=== PATIENT | male | born 1950 | race African-American/Black ===

== ENCOUNTER 2018-05-12 13:55 | Inpatient (IN) | payer MEDICARE ==
[2018-05-12] MEDS ORDERED: Dextrose 50% Abboject 50 ML SYRINGE ONE (14:04)
[2018-05-12 14:36] LABS: Hemoglobin 7.6 g/dL (14.0-18.0); Mean Corpuscular Hemoglobin 34.4 pg (27.0-31.0); Mean Platelet Volume 13.2 fL (7.4-10.4); Platelet Count 12 thou/uL (130-400); RBC Distribution Width 16.9 % (11.5-14.5); Red Blood Cell (RBC) Count 2.22 mill/uL (4.70-6.10)
[2018-05-12 14:48] LABS: ALT (SGPT) 8 U/L (8-55); AST (SGOT) 19 U/L (5-34); Albumin 3.6 g/dL (3.4-4.8); Alkaline Phosphatase 101 U/L (40-150); Anion Gap 17 mmol/L (10-20); BUN (Urea Nitrogen) 39 mg/dL (8.4-25.7); Bilirubin, Total 0.5 mg/dL (0.2-1.2); Calc. Creatinine Clearance 0 mL/min (70-130); Calcium 8.7 mg/dL (7.8-10.44); Carbon Dioxide 20 mmol/L (23-31); Chloride 108 mmol/L (98-107); Estimated GFR-MDRD 33; Globulin 3.3 g/dL (2.4-3.5); Potassium 4.4 mmol/L (3.5-5.1); Protein, Total 6.9 g/dL (5.8-8.1); Sodium 141 mmol/L (136-145)
[2018-05-12 14:49] LABS: #Basophils 0.1 thou/uL (0.0-0.2); #Eosinphils 0.4 thou/uL (0.0-0.7); #Lymphocytes 0.9 thou/uL (1.20-3.40); #Monocytes 0.4 thou/uL (0.11-0.59); #Neutrophils 4.3 thou/uL (1.40-6.50); %Eosinophils 6.8 % (0.0-10.0); %Lymphocytes 14.8 % (21.0-51.0); %Monocytes 6.6 % (0.0-10.0); %Neutrophils 70.8 % (42.0-75.0); MDiff Complete? YES
[2018-05-12 14:50] LABS: Anisocytosis SLIGHT = 6-15 cells (100X) (0-5/hpf); Platelet Morphology Comment Appears Decreased
[2018-05-12 14:52] LABS: Glucose 58 mg/dL (80-115)
[2018-05-12 15:32] LABS: Bilirubin Small (Negative); Blood, Urine Trace (Negative); Clarity CLOUDY (Clear); Glucose, Urine (Dipstick) Negative (Negative); Leukocyte Negative (Negative); Nitrite Negative (Negative); Protein, Urine (Dipstick) 100 mg/dL (Neg-Trace); Specific Gravity, Urine 1.012 (1.002-1.036); Urobilinogen 0.2 mg/dL (0.2-1.0)
[2018-05-12 15:34] LABS: Bacteria/HPF None Seen HPF (None Seen); Pathc Cast-AUWi Flag 2.03 (0-2.49); RBC/HPF 0-3 HPF (0-3); Squamous Epithelial 0-3 HPF (0-3); WBC/HPF 0-3 HPF (0-3)
[2018-05-12 15:35] LABS: Yeast-AUWi Flag 58.2 (0-25.0)
[2018-05-12 15:45] LABS: Hyaline Casts/LPF 7-10 HYALINE CAST LPF (0-3 Hyaline)
[2018-05-12 15:46] LABS: Renal Epithelial 0-3 HPF (0-3); Transitional Epithelial 0-3 HPF (0-3); Yeast-All Forms None Seen HPF (None Seen)
[2018-05-12 15:54] LABS: CKMB 10.1 ng/mL (0-6.6)
--- NOTE | 2018-05-12 16:56 | HP ---
PRIMARY CARE PROVIDER: Dr. Marco Antonio Garcia. CHIEF COMPLAINT: Hypoglycemia. HISTORY OF PRESENT ILLNESS: Mr. Alfaro is a pleasant 68-year-old gentleman who was seen at [facility] on May 12, 2018. The patient himself is unable to provide any significant history. He reports that he is on so many medications that he does not remember their names. He reports that he was able to ambulate with a walker until a few weeks ago. He is currently confined to the bed. He reports that he had swelling of both lower extremities. He reports that he was on Lasix, but is no longer on Lasix. EMS was called today because the patient was unable to move. They found that his blood sugars were 37. He was brought to the emergency room for that reason. He denies any chest pain or shortness of breath. He denies any nausea, vomiting , diarrhea or abdominal pain. He denies having any history of liver disease or kidney disease. REVIEW OF SYSTEMS: All other systems reviewed and found to be negative. PAST MEDICAL HISTORY: Diabetes mellitus type 2, dyslipidemia, and hypertension. PAST SURGICAL HISTORY: Appendectomy and left knee surgery. SOCIAL HISTORY: The patient smokes half a pack of cigarettes a day. He denies any alcohol use or recreational drug use. FAMILY HISTORY: No family history of premature coronary artery disease. ALLERGIES: NO KNOWN DRUG ALLERGIES. CURRENT MEDICATIONS: This needs to be clarified. The patient does not recall the names of his medications. CODE STATUS: I discussed his code status. He is full code. His daughter, who lives in [place], is his surrogate decision maker. PHYSICAL EXAMINATION: GENERAL: On examination, Mr. Alfaro is awake and alert, not in acute distress. VITAL SIGNS: Blood pressure is 137/67, pulse 80, respiratory rate 13, and oxygen saturation 98% on room air. EYES: No scleral icterus, no conjunctival pallor. ENT: Moist mucosal membranes. No oropharyngeal erythema or exudates. NECK: Supple, nontender, trachea is midline. Large right-sided neck mass. RESPIRATORY: Accessory muscles of breathing are not active. Chest wall movements are symmetric bilaterally. LUNGS: Clear to auscultation without wheeze, rhonchi, or crepitations. CARDIOVASCULAR: S1 and S2 are heard, regular. Peripheral pulses palpable. No carotid bruit, no pericardial rub. ABDOMEN: Soft, nontender, bowel sounds are heard, no hepatomegaly, no splenomegaly. He has scratch olivares over the abdomen. NEUROLOGIC: He has a pronounced right upper extremity tremor. Cranial nerves 2 through 12 intact, deep tendon reflexes 2+. SKIN: Scratch olivares over the abdomen. He has bilateral lower extremity edema. LYMPHATIC: Cervical lymphadenopathy present. PSYCHIATRIC: Normal mood, normal affect, the patient is oriented to person and place, not to time. LABORATORY DATA: Mr. Alfaro's labs and investigations were reviewed. A 12- lead electrocardiogram shows normal sinus rhythm and right bundle-branch block. Normal white count, macrocytic anemia with hemoglobin 7.6, thrombocytopenia with platelet count of 12,000. Normal sodium, normal potassium, elevated blood urea nitrogen of 39, elevated creatinine of 2.38, unremarkable liver profile, elevated CK of 479 and indeterminate troponin I of 0.040. BNP is mildly elevated at 149.4. Urinalysis is negative for nitrite and leukocyte esterase. ASSESSMENT AND PLAN: Mr. Alfaro is a pleasant 68-year-old gentleman who was seen at [facility] on May 12, 2018. His problem list includes: 1. Acute kidney injury: Mr. Alfaro is presenting with acute kidney injury. Etiology unclear, could be related to rhabdomyolysis. Could also be prerenal from dehydration. He will be admitted to the hospital for further management. We will provide intravenous fluids and recheck creatinine. If creatinine is not improving, the patient may need further investigations. 2. Thrombocytopenia: We will check platelet count again to ensure this value is real. We will avoid pharmaco-prophylaxis for deep venous thrombosis. Further outcomes depending on how his platelets trend over the next day or two. 3. Hypoglycemia: The patient was hypoglycemic at home. It is unclear what medications he is taking. He denies taking insulin. Once his medications are clarified, we will hold the once likely to be affected by acute renal failure. 4. Macrocytic anemia: We will recheck the hemoglobin level. We will check vitamin B12 and folic acid level. 5. Indeterminate troponin I: The patient denies having any chest pain. Troponin I elevation, most likely secondary to acute renal failure. We will trend troponins. 6. Dyslipidemia: We will resume the patient's home medications once clarified. 7. Hypertension: We will resume the patient's home medications once clarified, we will monitor vital signs and titrate antihypertensives as needed. Many thanks for allowing me to participate in your patient's care. Please feel free to contact me with any questions or concerns. 8. Neck mass: concerning for malignancy. Will check CT neck/chest/abdo/ pelvis. LEVEL OF RISK: Moderate. LEVEL OF COMPLEXITY: Moderate. Job ID: [id number] MTDD
[2018-05-12 17:07] VITALS: BMI 24.4
[2018-05-12] MEDS: Sodium Chloride 0.9% 1,000 ML IV SCH (17:51)
[2018-05-12] MEDS: Nicotine 14 MG PATCH TD SCH (17:51)
[2018-05-12 20:41] LABS: Troponin I 0.041 ng/mL (< 0.028)
[2018-05-13] MEDS: Sodium Chloride 0.9% 1,000 ML IV SCH ×2 (04:05→12:22)
[2018-05-13 06:04] LABS: #Eosinphils 0.3 thou/uL (0.0-0.7); #Monocytes 0.6 thou/uL (0.11-0.59); #Neutrophils 2.2 thou/uL (1.40-6.50); %Basophils 1.1 % (0.0-1.0); %Eosinophils 6.2 % (0.0-10.0); %Lymphocytes 24.6 % (21.0-51.0); %Monocytes 14.1 % (0.0-10.0); Hemoglobin 6.1 g/dL (14.0-18.0); Mean Corpuscular HGB CONC 34.1 g/dL (32.0-36.0); Mean Corpuscular Hemoglobin 35.3 pg (27.0-31.0); Mean Platelet Volume 13.3 fL (7.4-10.4); Platelet Count 6 thou/uL (130-400); RBC Distribution Width 16.6 % (11.5-14.5); Red Blood Cell (RBC) Count 1.74 mill/uL (4.70-6.10); White Blood Cell (WBC) Count 4.1 thou/uL (4.8-10.8)
[2018-05-13 06:14] LABS: Anion Gap 10 mmol/L (10-20); BUN (Urea Nitrogen) 41 mg/dL (8.4-25.7); CK (CPK) 344 U/L (30-200); Calc. Creatinine Clearance 36 mL/min (70-130); Calcium 8.1 mg/dL (7.8-10.44); Carbon Dioxide 24 mmol/L (23-31); Chloride 110 mmol/L (98-107); Estimated GFR-MDRD 38; Glucose 132 mg/dL (80-115); Potassium 4.1 mmol/L (3.5-5.1); Sodium 140 mmol/L (136-145)
[2018-05-13 09:24] LABS: Reticulocyte Count 3.1 % (0.5-1.5)
[2018-05-13 10:14] LABS: Folate (Folic Acid) 4.5 ng/mL (7.0-31.4)
[2018-05-13] MEDS ORDERED: ISOVUE-370 76%-LOCM 1 ML ONE (12:33)
[2018-05-13] MEDS ORDERED: Cyanocobalamin 1000 MCG/ML VIAL IM SCH (14:00)
--- NOTE | 2018-05-13 15:16 | CT ---
CT CHEST WITH IV CONTRAST CT ABDOMEN AND PELVIS WITH IV AND ORAL CONTRAST: HISTORY: Chest and neck pain and swelling. Possible metastatic disease. FINDINGS: Minimal bilateral pleural fluid. Mild bibasilar lung atelectasis. The superior most images show mar ked enlargement of the thyroid gland involving each lobe, right greater than left, with extension to the right upper mediastinum at the level of the manubrium. A well-circumscribed homogeneous fat dens ity mass involving the right infraspinatus muscle measures up to 9.9 x 5.0 cm greatest diameters on t he axial images and is consistent with a muscular lipoma. No aggressive characteristics. Prominent calcification throughout the arterial structures, including at each hilum, where arterial s ource is suspected. No evidence of bowel obstruction. Urinary bladder is unremarkable. Fecal distention of the rectum up to 7.9 cm with relative thickening of the wall of the rectum. No e vidence of perforation. Prominent degenerative changes lumbar spine. An oval subtle ill-defined kathrine ency at the posterior aspect of the left iliac bone measures up to 1.6 cm. An additional, similar-ap pearing lucency immediately anterior to this within the left iliac bone is 1.0 cm greatest diameter. Postoperative changes at the left groin with appearance of bypass procedure. IMPRESSION: 1. Enlarged heterogeneous thyroid gland. Appearance is most suggestive of a multinodular goiter bas ed on this exam. Please consider ENT evaluation. 2. Lucencies within the left iliac bone could represent an aggressive process such as blastic neopla sm. Since these are lytic, a bone scan is not appropriate for evaluation. Please correlate with hem atologic evaluation. 3. Prominent atherosclerosis. 4. Circumferential wall thickening of the rectum with moderate distention. Clinical correlation reg arding other signs and symptoms of stercoral proctitis is required. POS: [place]
[2018-05-13] MEDS: Acetaminophen 325 MG TAB PO PRN (16:15)
[2018-05-13] MEDS: Nicotine 14 MG PATCH TD SCH (16:16)
--- NOTE | 2018-05-13 16:23 | CT ---
CT NECK WITH CONTRAST: 05/13/18 HISTORY: Right sided neck mass. COMPARISON: No prior neck CTs. FINDINGS: The thyroid gland is severely enlarged. The right lobe measures approximately 10.5 x 7 x 5 cm. The le ft lobe measures approximately 9.5 x 3.5 x 3.5 cm. The isthmus is also enlarged. There are numerous h eterogeneous, mixed density nodular structures throughout the enlarged thyroid gland. The larger righ t lobe mildly displaces the trachea to the left. The bilateral carotid arteries and internal jugular veins are displaced posterolaterally by the thyroid enlargement. No high grade stenosis of the trache a. The enlarged right lobe of the thyroid gland reaches the level of the right submandibular gland. O therwise, no major pathology is identified involving the submandibular, parotid, parapharyngeal, post erior cervical, and foreign policy officer spaces. Atherosclerotic calcification of bilateral proximal internal c arotid arteries, including carotid bulbs. The larynx is distorted by the thyroid enlargement. No lymp hadenopathy. IMPRESSION: Severe thyromegaly due to multinodular goiter. POS: CET
--- NOTE | 2018-05-13 17:45 | PDOC.PN ---
- Subjective Encounter Start Date: 05/13/18 Encounter Start Time: 08:40 Pt seen for followup re: pancytopenia. Denies chest pain. Reports rosa LE pain. - Objective Resuscitation Status - Order Detail: 05/12/18 16:07 Resuscitation Status Routine Resuscitation Status: FULL: Full Resuscitation Discussed with: pamela POLANCO Reviewed: Yes Vital Signs & Weight: Vital Signs (12 hours) Temp Pulse Pulse Resp BP BP Pulse Ox 05/13/18 14:14 97.6 F 90 16 177/83 H 97 05/13/18 12:28 97.6 F 82 14 159/69 H 98 05/13/18 07:58 97.6 F 82 18 159/69 H 98 Weight Weight 175 lb I&O: 05/12/18 05/13/18 05/14/18 06:59 06:59 06:59 Intake Total 1700 0 Balance 1700 0 Result Diagrams: 05/13/18 05:39 05/13/18 05:39 Additional Labs: Accuchecks 05/13/18 05/13/18 05/13/18 16:31 11:33 05:29 POC Glucose 256 H 289 H 146 H 05/12/18 19:34 POC Glucose 157 H labs reviewed by me Phys Exam - Physical Examination Constitutional: NAD HEENT: moist MMs, sclera anicteric, oral pharynx no lesions, 2+ tonsils large right-sided neck mass Respiratory: clear to auscultation bilateral Cardiovascular: RRR, no rub S1, S2 Gastrointestinal: soft, non-tender, no distention, positive bowel sounds Neurological: moves all 4 limbs Psychiatric: normal affect Deviation from normal: Oriented to person and place, not to time Dx/Plan (1) Pancytopenia Code(s): D61.818 - OTHER PANCYTOPENIA Status: Acute Comment: transfuse platelets, follow counts (2) Neck mass Code(s): R22.1 - LOCALIZED SWELLING, MASS AND LUMP, NECK Status: Acute Comment: await CT (3) SHIRLENE (acute kidney injury) Code(s): N17.9 - ACUTE KIDNEY FAILURE, UNSPECIFIED Status: Acute Comment: creatinine improved to 2.12 (4) DM2 (diabetes mellitus, type 2) Status: Chronic Comment: hypoglycemia has resolved, start insulin sliding scale (5) CAD (coronary artery disease) Code(s): I25.10 - ATHSCL HEART DISEASE OF [place] CORONARY ARTERY W/O ANG PCTRS Status: Chronic Comment: s/p CABG, stable - Plan * . Review of Systems - Review of Systems Constitutional: weakness. negative: fever, chills, sweats, malaise Respiratory: negative: Cough, Shortness of Breath, SOB with Excertion, Pleuritic Pain, Wheezing Cardiovascular: negative: chest pain, palpitations, orthopnea, paroxysmal nocturnal dyspnea, edema, light headedness Gastrointestinal: negative: Nausea, Vomiting, Abdominal Pain, Diarrhea, Constipation, Melena, Hematochezia Genitourinary: negative: Dysuria, Frequency, Incontinence, Hematuria, Retention Musculoskeletal: Leg Pain, Other. negative: Neck Pain, Shoulder Pain, Arm Pain , Back Pain, Hand Pain, Foot Pain - Medications/Allergies Allergies/Adverse Reactions: Allergies Allergy/AdvReac Type Severity Reaction Status Date / Time No Known Drug Allergies Allergy Verified 05/12/18 16:07 Medications: Current Medications Acetaminophen (Tylenol) 650 mg PO Q4H PRN PRN Reason: Headache/Fever/Mild Pain (1-3) Last Admin: 05/13/18 16:15 Dose: 650 mg Cyanocobalamin (Vitamin B-12) 1,000 mcg IM DAILY [facility] Stop: 05/17/18 09:01 Folic Acid (Folvite) 1 mg PO DAILY [facility] Hydralazine HCl (Apresoline) 10 mg SLOW IVP Q6H PRN PRN Reason: SBP Greater Than 170 Sodium Chloride (Normal Saline 0.9%) 1,000 mls @ 100 mls/hr IV .Q10H [facility] Last Admin: 05/13/18 12:22 Dose: 1,000 mls Nicotine (Nicoderm Patch) 14 mg TD Q24HR [facility] Last Admin: 05/13/18 16:16 Dose: 14 mg Senna/Docusate Sodium (Senokot S) 2 tab PO BID PRN PRN Reason: Constipation Sodium Chloride (Flush - Normal Saline) 10 ml IVF PRN PRN PRN Reason: Saline Flush
[2018-05-13] MEDS ORDERED: Dextrose 5% in Water 1,000 ML IV PRN (17:48)
[2018-05-13] MEDS ORDERED: Dextrose 50% Abboject 50 ML SYRINGE SLOW IVP PRN (17:48)
--- NOTE | 2018-05-13 19:44 | CON ---
DATE OF CONSULTATION: REASON FOR CONSULTATION: Thrombocytopenia. HISTORY OF PRESENT ILLNESS: Mr. Alfaro is a 68-year-old gentleman, who presented to the emergency room after a week-long history of increasing weakness. He usually is able to walk with a walker, but over the last few weeks, he has had increasing weakness. He does have a lady who comes to help him daily with his meals. She notified EMS as the patient was unable to move. In the ER, he had a glucose of 37. His hemoglobin was 7.6 and his platelet count was 12,000. He was admitted for further treatment and workup. He was transfused 1 unit of platelets. On physical exam, he was noted to have a right neck mass, approximately 5 cm. It has discrete borders. The patient states he has never noticed the mass. Denies any dysphagia or odynophagia. He denies any chest pain or shortness of breath. No abdominal discomfort. Denies any melena, hematochezia, hemoptysis, or epistasis. The patient states he does have occasional night sweats, non-drenching. PAST MEDICAL HISTORY: 1. Diabetes mellitus, 2. 2. Hypertension. 3. Dyslipidemia. PAST SURGICAL HISTORY: 1. Appendectomy. 2. Left knee surgery. ALLERGIES: NO KNOWN DRUG ALLERGIES. HOME MEDICATIONS: The patient does not know his home medications. FAMILY HISTORY: Denies any history of blood disorder or cancer. SOCIAL HISTORY: Single, lives alone, one grown daughter. Everyday smoker. No alcohol or illicit drug use. REVIEW OF SYSTEMS: A 10-point review of systems is negative except for noted in HPI. PHYSICAL EXAMINATION: VITAL SIGNS: Temperature is 97.6, pulse is 82, respiratory rate 14, BP is 159/ 69, and he is 98% on room air. GENERAL: Well-developed, well-nourished male, in no acute distress. HEENT: Normocephalic and atraumatic. Pupils equal and reactive to light. NECK: He has a firm, red, non-movable right neck mass. CV: Regular rate and rhythm. LUNGS: Clear. ABDOMEN: Soft and nontender. There is no organomegaly. EXTREMITIES: No clubbing, cyanosis, or edema. SKIN: No rash. HEMATOLOGIC: No petechiae. He has wet purpura on his right buccal cavity and left tongue. NEUROLOGIC: Nonfocal. PSYCHIATRIC: The patient is alert and oriented. PERTINENT DIAGNOSTIC STUDIES: LABORATORY RESULTS: Current WBCs are 4.1, hemoglobin 6.1, MCV is 103, platelet count is 6, got 54% neutrophils, 24% lymphocytes, and 14% monocytes. Sodium is 140, potassium 4.1, chloride 110, CO2 is 24, BUN is 41, creatinine 2.12, glucose is 132, and calcium 8.1. Total bilirubin 0.5, AST is 19, ALT is 8, alkaline phosphatase is 101. Creatine kinase is 479, CK-MB is 10, troponin 0.040, and BNP is 149. Serum total protein 6.9, albumin 3.6, and globulin 3.3. B12 is 202, and folic acid is 4.5. ASSESSMENT: 1. Right neck mass. 2. Thrombocytopenia with wet purpura. 3. Macrocytic anemia. 4. B12 deficiency. DISCUSSION: The patient is being transfused 1 unit of platelets. We will replete his B12 and folate. He is scheduled for a CT scan of his neck, chest, abdomen, and pelvis. He will likely need a biopsy. If the neck mass is the only mass present , we will need ENT consultation. Further recommendations to follow. Thank you for the consult. Job ID: [id number] MTDD
[2018-05-14] MEDS: Sodium Chloride 0.9% 1,000 ML IV SCH ×3 (01:35→17:39)
[2018-05-14 05:55] LABS: #Eosinphils 0.4 thou/uL (0.0-0.7); #Monocytes 0.7 thou/uL (0.11-0.59); #Neutrophils 3.6 thou/uL (1.40-6.50); %Basophils 0.3 % (0.0-1.0); %Eosinophils 7.6 % (0.0-10.0); %Monocytes 12.1 % (0.0-10.0); %Neutrophils 62.1 % (42.0-75.0); Hemoglobin 7.9 g/dL (14.0-18.0); Mean Corpuscular HGB CONC 33.1 g/dL (32.0-36.0); Mean Corpuscular Hemoglobin 32.6 pg (27.0-31.0); Mean Corpuscular Volume 98.3 fL (78.0-98.0); Mean Platelet Volume 9.4 fL (7.4-10.4); Platelet Count 42 thou/uL (130-400); RBC Distribution Width 20.2 % (11.5-14.5); Red Blood Cell (RBC) Count 2.42 mill/uL (4.70-6.10); White Blood Cell (WBC) Count 5.8 thou/uL (4.8-10.8)
[2018-05-14 06:15] LABS: Anion Gap 13 mmol/L (10-20); BUN (Urea Nitrogen) 30 mg/dL (8.4-25.7); CK (CPK) 238 U/L (30-200); Calc. Creatinine Clearance 51 mL/min (70-130); Calcium 8.7 mg/dL (7.8-10.44); Carbon Dioxide 23 mmol/L (23-31); Chloride 109 mmol/L (98-107); Estimated GFR-MDRD 56; Glucose 159 mg/dL (80-115); Potassium 3.9 mmol/L (3.5-5.1); Sodium 141 mmol/L (136-145)
[2018-05-14] MEDS: Folic Acid 1 MG TAB PO SCH (07:48)
[2018-05-14] MEDS: Cyanocobalamin 1000 MCG/ML VIAL IM SCH (07:50)
--- NOTE | 2018-05-14 15:17 | EKG ---
Test Reason : WEAKNESS Blood Pressure : / mmHG Vent. Rate : 080 BPM Atrial Rate : 080 BPM P-R Int : 252 ms QRS Dur : 148 ms QT Int : 432 ms P-R-T Axes : 046 -73 071 degrees QTc Int : 498 ms Sinus rhythm with 1st degree A-V block Right bundle branch block Left anterior fascicular block Bifascicular block Minimal voltage criteria for LVH, may be normal variant Biatrial enlargement Abnormal ECG Confirmed by PAT MOORE, SILVIANO Gastelum ([id number]), film editor CONNIE KIM ([id number]) on 05/14/2018 3:17:01 PM Referred By: Confirmed By:SILVIANO STEWART MD
--- NOTE | 2018-05-14 15:24 | PDOC.PN ---
- Subjective Encounter Start Date: 05/14/18 Encounter Start Time: 09:20 Pt seen for followup re: pancytopenia. Reports he feels okay. - Objective Resuscitation Status - Order Detail: 05/12/18 16:07 Resuscitation Status Routine Resuscitation Status: FULL: Full Resuscitation Discussed with: patient Vital Signs & Weight: Vital Signs (12 hours) Temp Pulse Resp BP Pulse Ox 05/14/18 08:00 98.3 F 88 20 174/81 H 95 Weight Weight 175 lb I&O: 05/13/18 05/14/18 05/15/18 06:59 06:59 06:59 Intake Total 1700 350 Balance 1700 350 Result Diagrams: 05/14/18 05:11 05/14/18 05:11 Additional Labs: Accuchecks 05/14/18 05/14/18 05/13/18 11:27 04:27 20:00 POC Glucose 204 H 154 H 224 H 05/13/18 16:31 POC Glucose 256 H Phys Exam - Physical Examination Constitutional: NAD HEENT: moist MMs Neck: supple neck mass Respiratory: clear to auscultation bilateral Cardiovascular: RRR Gastrointestinal: soft Neurological: moves all 4 limbs Psychiatric: normal affect Dx/Plan (1) Pancytopenia Code(s): D61.818 - OTHER PANCYTOPENIA Status: Acute Comment: platelet count improved to 42 after platelet transfusion, hemoglobin improved to 7.9 after pRBC transfusion. (2) Neck mass Code(s): R22.1 - LOCALIZED SWELLING, MASS AND LUMP, NECK Status: Acute Comment: thyroid mass, await ENT consult (3) SHIRLENE (acute kidney injury) Code(s): N17.9 - ACUTE KIDNEY FAILURE, UNSPECIFIED Status: Acute Comment: creatinine improved to 1.51 today (4) DM2 (diabetes mellitus, type 2) Status: Chronic Comment: continue insulin sliding scale (5) CAD (coronary artery disease) Code(s): I25.10 - ATHSCL HEART DISEASE OF [place] CORONARY ARTERY W/O ANG PCTRS Status: Chronic Comment: stable - Plan * . Review of Systems - Review of Systems Constitutional: weakness Respiratory: negative: Cough, Shortness of Breath, SOB with Excertion, Pleuritic Pain, Wheezing Cardiovascular: negative: chest pain, palpitations, orthopnea, paroxysmal nocturnal dyspnea, edema, light headedness - Medications/Allergies Allergies/Adverse Reactions: Allergies Allergy/AdvReac Type Severity Reaction Status Date / Time No Known Drug Allergies Allergy Verified 05/12/18 16:07 Medications: Current Medications Acetaminophen (Tylenol) 650 mg PO Q4H PRN PRN Reason: Headache/Fever/Mild Pain (1-3) Last Admin: 05/13/18 16:15 Dose: 650 mg Cyanocobalamin (Vitamin B-12) 1,000 mcg IM DAILY [facility] Stop: 05/17/18 09:01 Last Admin: 05/14/18 07:50 Dose: 1,000 mcg Dextrose/Water (Dextrose 50%) 25 gm SLOW IVP PRN PRN PRN Reason: Hypoglycemia Folic Acid (Folvite) 1 mg PO DAILY [facility] Last Admin: 05/14/18 07:48 Dose: 1 mg Glucagon (Glucagon) 1 mg IM PRN PRN PRN Reason: Hypoglycemia Hydralazine HCl (Apresoline) 10 mg SLOW IVP Q6H PRN PRN Reason: SBP Greater Than 170 Sodium Chloride (Normal Saline 0.9%) 1,000 mls @ 100 mls/hr IV .Q10H [facility] Last Admin: 05/14/18 05:52 Dose: 1,000 mls Dextrose/Water (D5w) 1,000 mls @ 0 mls/hr IV .Q0M PRN PRN Reason: Hypoglycemia Insulin Human Lispro (Humalog) 0 units SC .MILD SLIDING SCALE PRN PRN Reason: Mild Correctional Scale Nicotine (Nicoderm Patch) 14 mg TD Q24HR [facility] Last Admin: 05/13/18 16:16 Dose: 14 mg Senna/Docusate Sodium (Senokot S) 2 tab PO BID PRN PRN Reason: Constipation Sodium Chloride (Flush - Normal Saline) 10 ml IVF PRN PRN PRN Reason: Saline Flush
[2018-05-14] MEDS: Nicotine 14 MG PATCH TD SCH (16:29)
[2018-05-14] MEDS: HumaLOG 300 UNITS/3 ML VIAL SC PRN (20:58)
[2018-05-15 05:34] LABS: #Eosinphils 0.3 thou/uL (0.0-0.7); #Lymphocytes 1.1 thou/uL (1.20-3.40); #Monocytes 0.7 thou/uL (0.11-0.59); #Neutrophils 2.7 thou/uL (1.40-6.50); %Basophils 0.3 % (0.0-1.0); %Eosinophils 6.9 % (0.0-10.0); %Lymphocytes 21.9 % (21.0-51.0); %Monocytes 13.7 % (0.0-10.0); %Neutrophils 57.2 % (42.0-75.0); Hemoglobin 7.4 g/dL (14.0-18.0); Mean Corpuscular HGB CONC 34.2 g/dL (32.0-36.0); Mean Corpuscular Hemoglobin 33.2 pg (27.0-31.0); Mean Corpuscular Volume 97.2 fL (78.0-98.0); Mean Platelet Volume 9.7 fL (7.4-10.4); Platelet Count 32 thou/uL (130-400); RBC Distribution Width 19.6 % (11.5-14.5); Red Blood Cell (RBC) Count 2.22 mill/uL (4.70-6.10); White Blood Cell (WBC) Count 4.8 thou/uL (4.8-10.8)
[2018-05-15 05:58] LABS: Anion Gap 14 mmol/L (10-20); BUN (Urea Nitrogen) 23 mg/dL (8.4-25.7); Calc. Creatinine Clearance 60 mL/min (70-130); Calcium 8.6 mg/dL (7.8-10.44); Carbon Dioxide 20 mmol/L (23-31); Chloride 111 mmol/L (98-107); Estimated GFR-MDRD 67; Glucose 132 mg/dL (80-115); Potassium 3.8 mmol/L (3.5-5.1); Sodium 141 mmol/L (136-145)
[2018-05-15] MEDS: Sodium Chloride 0.9% 1,000 ML IV SCH (06:08)
[2018-05-15 06:16] LABS: Free T4 (Free Thyroxine) 0.96 ng/dL (0.70-1.48)
[2018-05-15] MEDS: Folic Acid 1 MG TAB PO SCH (08:14)
[2018-05-15] MEDS: Cyanocobalamin 1000 MCG/ML VIAL IM SCH (08:14)
[2018-05-15] MEDS: hydrALAZINE 20 MG/ML VIAL SLOW IVP PRN ×2 (08:14→16:56)
[2018-05-15] MEDS: HumaLOG 300 UNITS/3 ML VIAL SC PRN (12:31)
--- NOTE | 2018-05-15 14:24 | PDOC.PN ---
- Subjective Encounter Start Date: 05/15/18 Encounter Start Time: 09:00 Pt seen for followup re: pancytopenia. Denies chest pain or shortness of breath. - Objective Resuscitation Status - Order Detail: 05/12/18 16:07 Resuscitation Status Routine Resuscitation Status: FULL: Full Resuscitation Discussed with: pamela POLANCO Reviewed: Yes Vital Signs & Weight: Vital Signs (12 hours) Temp Pulse Resp BP BP Pulse Ox 05/15/18 11:00 98.3 F 93 18 181/87 H 98 05/15/18 08:14 90 197/81 H 05/15/18 08:00 97 05/15/18 07:29 99.0 F 90 18 197/81 H 97 Weight Weight 175 lb I&O: 05/14/18 05/15/18 05/16/18 06:59 06:59 06:59 Intake Total 350 1680 Output Total 650 Balance 350 1030 Result Diagrams: 05/15/18 05:07 05/15/18 05:07 Additional Labs: Accuchecks 05/15/18 05/15/18 05/14/18 11:09 06:12 19:42 POC Glucose 242 H 146 H 219 H 05/14/18 17:01 POC Glucose 200 H labs reviewed by me Phys Exam - Physical Examination Constitutional: NAD HEENT: moist MMs neck mass Respiratory: clear to auscultation bilateral Cardiovascular: RRR Gastrointestinal: soft Neurological: moves all 4 limbs Psychiatric: normal affect Dx/Plan (1) Pancytopenia Code(s): D61.818 - OTHER PANCYTOPENIA Status: Acute Comment: leukopenia resolved, pt still has anemia and thrombocytopenia (2) Neck mass Code(s): R22.1 - LOCALIZED SWELLING, MASS AND LUMP, NECK Status: Acute Comment: await ENT consult for goiter. Thyroid profile unremarkable. (3) DM2 (diabetes mellitus, type 2) Status: Chronic Comment: continue insulin sliding scale (4) CAD (coronary artery disease) Code(s): I25.10 - ATHSCL HEART DISEASE OF [place] CORONARY ARTERY W/O ANG PCTRS Status: Chronic Comment: stable (5) SHIRLENE (acute kidney injury) Code(s): N17.9 - ACUTE KIDNEY FAILURE, UNSPECIFIED Status: Resolved - Plan * . Review of Systems - Review of Systems Respiratory: negative: Cough, Shortness of Breath, SOB with Excertion, Pleuritic Pain, Wheezing Cardiovascular: negative: chest pain, palpitations, orthopnea, paroxysmal nocturnal dyspnea, edema, light headedness - Medications/Allergies Allergies/Adverse Reactions: Allergies Allergy/AdvReac Type Severity Reaction Status Date / Time No Known Drug Allergies Allergy Verified 05/12/18 16:07 Medications: Current Medications Acetaminophen (Tylenol) 650 mg PO Q4H PRN PRN Reason: Headache/Fever/Mild Pain (1-3) Last Admin: 05/13/18 16:15 Dose: 650 mg Cyanocobalamin (Vitamin B-12) 1,000 mcg IM DAILY [facility] Stop: 05/17/18 09:01 Last Admin: 05/15/18 08:14 Dose: 1,000 mcg Dextrose/Water (Dextrose 50%) 25 gm SLOW IVP PRN PRN PRN Reason: Hypoglycemia Folic Acid (Folvite) 1 mg PO DAILY [facility] Last Admin: 05/15/18 08:14 Dose: 1 mg Glucagon (Glucagon) 1 mg IM PRN PRN PRN Reason: Hypoglycemia Hydralazine HCl (Apresoline) 10 mg SLOW IVP Q6H PRN PRN Reason: SBP Greater Than 170 Last Admin: 05/15/18 08:14 Dose: 10 mg Dextrose/Water (D5w) 1,000 mls @ 0 mls/hr IV .Q0M PRN PRN Reason: Hypoglycemia Insulin Human Lispro (Humalog) 0 units SC .MILD SLIDING SCALE PRN PRN Reason: Mild Correctional Scale Last Admin: 05/15/18 12:31 Dose: 3 unit Melatonin (Melatonin) 3 mg PO HS PRN PRN Reason: Insomnia Nicotine (Nicoderm Patch) 14 mg TD Q24HR [facility] Last Admin: 05/14/18 16:29 Dose: 14 mg Senna/Docusate Sodium (Senokot S) 2 tab PO BID PRN PRN Reason: Constipation Sodium Chloride (Flush - Normal Saline) 10 ml IVF PRN PRN PRN Reason: Saline Flush
[2018-05-15] MEDS: Nicotine 14 MG PATCH TD SCH (16:47)
[2018-05-15] MEDS ORDERED: Lisinopril 10 MG TAB PO SCH (20:00)
[2018-05-15] MEDS ORDERED: Amlodipine 5 MG TAB PO SCH (20:00)
[2018-05-16] MEDS: hydrALAZINE 20 MG/ML VIAL SLOW IVP PRN ×2 (00:29→21:49)
[2018-05-16] MEDS: Melatonin 3 MG TAB PO PRN ×2 (01:13→21:50)
[2018-05-16] MEDS: Acetaminophen 325 MG TAB PO PRN (01:13)
[2018-05-16] MEDS: HYDROcodone/Acetaminophen 5/325 mg Tablet PO PRN ×3 (03:52→21:50)
[2018-05-16] MEDS: HumaLOG 300 UNITS/3 ML VIAL SC PRN ×2 (05:43→11:40)
[2018-05-16] MEDS: Lisinopril 10 MG TAB PO SCH (08:37)
[2018-05-16] MEDS: Amlodipine 5 MG TAB PO SCH (08:40)
[2018-05-16] MEDS: Folic Acid 1 MG TAB PO SCH (08:40)
[2018-05-16] MEDS: Cyanocobalamin 1000 MCG/ML VIAL IM SCH (08:41)
[2018-05-16 09:42] LABS: Hemoglobin 7.7 g/dL (14.0-18.0); Mean Corpuscular HGB CONC 32.8 g/dL (32.0-36.0); Mean Corpuscular Hemoglobin 31.8 pg (27.0-31.0); Mean Corpuscular Volume 96.9 fL (78.0-98.0); Mean Platelet Volume 10.1 fL (7.4-10.4); Platelet Count 26 thou/uL (130-400); RBC Distribution Width 19.6 % (11.5-14.5); Red Blood Cell (RBC) Count 2.42 mill/uL (4.70-6.10); White Blood Cell (WBC) Count 4.6 thou/uL (4.8-10.8)
[2018-05-16 09:50] LABS: Anion Gap 12 mmol/L (10-20); BUN (Urea Nitrogen) 26 mg/dL (8.4-25.7); Calc. Creatinine Clearance 55 mL/min (70-130); Calcium 8.8 mg/dL (7.8-10.44); Carbon Dioxide 23 mmol/L (23-31); Chloride 108 mmol/L (98-107); Estimated GFR-MDRD 61; Glucose 180 mg/dL (80-115); Potassium 3.7 mmol/L (3.5-5.1); Sodium 139 mmol/L (136-145)
[2018-05-16 10:23] LABS: Band 1 % (5-11); Eosinophils 7 % (0-10); Lymphocytes 28 % (21-51); MDiff Complete? YES; Monocytes 13 % (0-10); Neutrophil 50 % (42-75); Platelet Morphology Comment Appears Decreased; Polychromasia SLIGHT = 2-3 cells (100X) (0-2/hpf); Reactive Lymphocytes 1 % (0-10); Schistocytes SLIGHT = 2-5 cells (100X) (0-1/hpf)
[2018-05-16] MEDS: Nicotine 14 MG PATCH TD SCH (16:19)
--- NOTE | 2018-05-16 18:55 | PDOC.PN ---
- Subjective Encounter Start Date: 05/16/18 Encounter Start Time: 08:20 Pt seen for followup re: pancytopenia. Denies chest pain. Feels weak. - Objective Resuscitation Status - Order Detail: 05/12/18 16:07 Resuscitation Status Routine Resuscitation Status: FULL: Full Resuscitation Discussed with: patient Vital Signs & Weight: Vital Signs (12 hours) Temp Pulse Resp BP BP Pulse Ox 05/16/18 11:50 98.8 F 82 22 H 168/80 H 100 05/16/18 08:40 85 170/78 H 05/16/18 08:37 170/78 H 05/16/18 07:27 97.9 F 85 20 157/71 H 98 Weight Weight 175 lb I&O: 05/15/18 05/16/18 05/17/18 06:59 06:59 06:59 Intake Total 1680 1800 Output Total 650 1200 Balance 1030 600 Result Diagrams: 05/16/18 09:06 05/16/18 09:06 Additional Labs: Accuchecks 05/16/18 05/16/18 05/16/18 15:59 11:08 05:04 POC Glucose 178 H 212 H 170 H 05/15/18 20:20 POC Glucose 198 H Phys Exam - Physical Examination Constitutional: NAD HEENT: moist MMs Neck: supple Respiratory: clear to auscultation bilateral Cardiovascular: RRR Gastrointestinal: soft Neurological: moves all 4 limbs Psychiatric: normal affect Dx/Plan (1) Pancytopenia Code(s): D61.818 - OTHER PANCYTOPENIA Status: Acute Comment: workup in progress (2) Neck mass Code(s): R22.1 - LOCALIZED SWELLING, MASS AND LUMP, NECK Status: Acute Comment: await ENT consult for goiter. (3) DM2 (diabetes mellitus, type 2) Status: Chronic Comment: on insulin sliding scale, reasonable control (4) CAD (coronary artery disease) Code(s): I25.10 - ATHSCL HEART DISEASE OF [place] CORONARY ARTERY W/O ANG PCTRS Status: Chronic Comment: stable (5) SHIRLENE (acute kidney injury) Code(s): N17.9 - ACUTE KIDNEY FAILURE, UNSPECIFIED Status: Resolved - Plan * . amlodipine and lisinopril started last nigh for HTN Review of Systems - Review of Systems Constitutional: weakness Cardiovascular: negative: chest pain, palpitations, orthopnea, paroxysmal nocturnal dyspnea, edema, light headedness Gastrointestinal: negative: Nausea, Vomiting, Abdominal Pain, Diarrhea, Constipation, Melena, Hematochezia - Medications/Allergies Allergies/Adverse Reactions: Allergies Allergy/AdvReac Type Severity Reaction Status Date / Time No Known Drug Allergies Allergy Verified 05/12/18 16:07 Medications: Current Medications Acetaminophen (Tylenol) 650 mg PO Q4H PRN PRN Reason: Headache/Fever/Mild Pain (1-3) Last Admin: 05/16/18 01:13 Dose: 650 mg Hydrocodone Bitart/Acetaminophen ([place] 5/325) 1 tab PO Q6H PRN PRN Reason: Pain 4-6 Last Admin: 05/16/18 16:18 Dose: 1 tab Amlodipine Besylate (Norvasc) 5 mg PO DAILY [facility] Last Admin: 05/16/18 08:40 Dose: 5 mg Cyanocobalamin (Vitamin B-12) 1,000 mcg IM DAILY [facility] Stop: 05/17/18 09:01 Last Admin: 05/16/18 08:41 Dose: 1,000 mcg Dextrose/Water (Dextrose 50%) 25 gm SLOW IVP PRN PRN PRN Reason: Hypoglycemia Folic Acid (Folvite) 1 mg PO DAILY [facility] Last Admin: 05/16/18 08:40 Dose: 1 mg Glucagon (Glucagon) 1 mg IM PRN PRN PRN Reason: Hypoglycemia Hydralazine HCl (Apresoline) 10 mg SLOW IVP Q6H PRN PRN Reason: SBP Greater Than 170 Last Admin: 05/16/18 00:29 Dose: 10 mg Dextrose/Water (D5w) 1,000 mls @ 0 mls/hr IV .Q0M PRN PRN Reason: Hypoglycemia Insulin Human Lispro (Humalog) 0 units SC .MILD SLIDING SCALE PRN PRN Reason: Mild Correctional Scale Last Admin: 05/16/18 11:40 Dose: 3 unit Lisinopril (Zestril) 10 mg PO DAILY [facility] Last Admin: 05/16/18 08:37 Dose: 10 mg Melatonin (Melatonin) 3 mg PO HS PRN PRN Reason: Insomnia Last Admin: 05/16/18 01:13 Dose: 3 mg Nicotine (Nicoderm Patch) 14 mg TD Q24HR [facility] Last Admin: 05/16/18 16:19 Dose: 14 mg Senna/Docusate Sodium (Senokot S) 2 tab PO BID PRN PRN Reason: Constipation Sodium Chloride (Flush - Normal Saline) 10 ml IVF PRN PRN PRN Reason: Saline Flush
[2018-05-17] MEDS: HumaLOG 300 UNITS/3 ML VIAL SC PRN ×2 (05:38→17:09)
[2018-05-17] MEDS: HYDROcodone/Acetaminophen 5/325 mg Tablet PO PRN (05:42)
[2018-05-17 06:03] LABS: Hemoglobin 7.6 g/dL (14.0-18.0); Mean Corpuscular HGB CONC 33.4 g/dL (32.0-36.0); Mean Corpuscular Hemoglobin 33.1 pg (27.0-31.0); Mean Corpuscular Volume 98.9 fL (78.0-98.0); Mean Platelet Volume 10.7 fL (7.4-10.4); Platelet Count 21 thou/uL (130-400); RBC Distribution Width 19.3 % (11.5-14.5); Red Blood Cell (RBC) Count 2.29 mill/uL (4.70-6.10)
[2018-05-17 06:16] LABS: Anion Gap 11 mmol/L (10-20); BUN (Urea Nitrogen) 28 mg/dL (8.4-25.7); Calc. Creatinine Clearance 56 mL/min (70-130); Calcium 8.4 mg/dL (7.8-10.44); Carbon Dioxide 21 mmol/L (23-31); Chloride 106 mmol/L (98-107); Estimated GFR-MDRD 62; Glucose 149 mg/dL (80-115); Potassium 3.5 mmol/L (3.5-5.1); Sodium 134 mmol/L (136-145)
[2018-05-17 06:22] LABS: Band 2 % (5-11); Eosinophils 11 % (0-10); Lymphocytes 28 % (21-51); MDiff Complete? YES; Metamyelocyte 1 % (0-0); Monocytes 9 % (0-10); Neutrophil 49 % (42-75); Platelet Morphology Comment Appears Decreased
[2018-05-17] MEDS: Amlodipine 5 MG TAB PO SCH (08:06)
[2018-05-17] MEDS: Folic Acid 1 MG TAB PO SCH (08:07)
[2018-05-17] MEDS: Lisinopril 10 MG TAB PO SCH (08:07)
[2018-05-17] MEDS: Cyanocobalamin 1000 MCG/ML VIAL IM SCH (08:08)
[2018-05-17] MEDS: Sodium Chloride 0.9% 1,000 ML IV SCH (10:46)
[2018-05-17 14:55] LABS: INR-International Normal Ratio 1.1; PTT 31.3 SEC (22.9-36.1); Prothrombin Time 14.5 SEC (12.0-14.7)
--- NOTE | 2018-05-17 15:15 | PDOC.PN ---
- Subjective Encounter Start Date: 05/17/18 Encounter Start Time: 09:40 Pt seen for followup re: pancytopenia. Denies chest pain or shortness of breath , feels weak. - Objective Resuscitation Status - Order Detail: 05/12/18 16:07 Resuscitation Status Routine Resuscitation Status: FULL: Full Resuscitation Discussed with: patient Vital Signs & Weight: Vital Signs (12 hours) Temp Pulse Resp BP BP BP Pulse Ox 05/17/18 10:46 97.8 F 82 18 167/74 H 96 05/17/18 08:07 170/76 H 05/17/18 08:06 85 170/76 H 05/17/18 07:22 97.6 F 85 18 170/76 H 99 05/17/18 07:17 97.6 F 85 18 170/76 H 99 05/17/18 03:43 83 18 167/75 H Weight Weight 175 lb I&O: 05/16/18 05/17/18 05/18/18 06:59 06:59 06:59 Intake Total 1800 490 Output Total 1200 Balance 600 490 Result Diagrams: 05/17/18 04:47 05/17/18 04:47 Additional Labs: Accuchecks 05/17/18 05/17/18 05/16/18 10:44 04:32 20:06 POC Glucose 170 H 170 H 212 H 05/16/18 15:59 POC Glucose 178 H Phys Exam - Physical Examination Constitutional: NAD pallor Neck: supple neck mass Respiratory: clear to auscultation bilateral Cardiovascular: RRR Gastrointestinal: soft Neurological: moves all 4 limbs Psychiatric: normal affect Dx/Plan (1) Pancytopenia Code(s): D61.818 - OTHER PANCYTOPENIA Status: Acute Comment: Await SPEP (2) Neck mass Code(s): R22.1 - LOCALIZED SWELLING, MASS AND LUMP, NECK Status: Acute Comment: ENT will followup as outpatient. Pt awaiting Imaging-guided biopsy (3) DM2 (diabetes mellitus, type 2) Status: Chronic Comment: reasonable control (4) CAD (coronary artery disease) Code(s): I25.10 - ATHSCL HEART DISEASE OF [place] CORONARY ARTERY W/O ANG PCTRS Status: Chronic Comment: stable (5) SHIRLENE (acute kidney injury) Code(s): N17.9 - ACUTE KIDNEY FAILURE, UNSPECIFIED Status: Resolved - Plan plan discussed w/ family, PT/OT, out of bed/ambulate * . Nuclear bone scan to r/o paget's disease Review of Systems - Review of Systems Constitutional: weakness Respiratory: negative: Cough, Shortness of Breath, SOB with Excertion, Pleuritic Pain, Wheezing Cardiovascular: negative: chest pain, palpitations, orthopnea, paroxysmal nocturnal dyspnea, edema, light headedness - Medications/Allergies Allergies/Adverse Reactions: Allergies Allergy/AdvReac Type Severity Reaction Status Date / Time No Known Drug Allergies Allergy Verified 05/12/18 16:07 Medications: Current Medications Acetaminophen (Tylenol) 650 mg PO Q4H PRN PRN Reason: Headache/Fever/Mild Pain (1-3) Last Admin: 05/16/18 01:13 Dose: 650 mg Hydrocodone Bitart/Acetaminophen ([place] 5/325) 1 tab PO Q6H PRN PRN Reason: Pain 4-6 Last Admin: 05/17/18 05:42 Dose: 1 tab Amlodipine Besylate (Norvasc) 5 mg PO DAILY [facility] Last Admin: 05/17/18 08:06 Dose: 5 mg Cyanocobalamin (Vitamin B-12) 1,000 mcg PO DAILY [facility] Dextrose/Water (Dextrose 50%) 25 gm SLOW IVP PRN PRN PRN Reason: Hypoglycemia Folic Acid (Folvite) 1 mg PO DAILY [facility] Last Admin: 05/17/18 08:07 Dose: 1 mg Glucagon (Glucagon) 1 mg IM PRN PRN PRN Reason: Hypoglycemia Hydralazine HCl (Apresoline) 10 mg SLOW IVP Q6H PRN PRN Reason: SBP Greater Than 170 Last Admin: 05/16/18 21:49 Dose: 10 mg Dextrose/Water (D5w) 1,000 mls @ 0 mls/hr IV .Q0M PRN PRN Reason: Hypoglycemia Sodium Chloride (Normal Saline 0.9%) 1,000 mls @ 70 mls/hr IV .[id number] [facility] Last Admin: 05/17/18 10:46 Dose: 1,000 mls Insulin Human Lispro (Humalog) 0 units SC .MILD SLIDING SCALE PRN PRN Reason: Mild Correctional Scale Last Admin: 05/17/18 05:38 Dose: 2 unit Lisinopril (Zestril) 10 mg PO DAILY [facility] Last Admin: 05/17/18 08:07 Dose: 10 mg Melatonin (Melatonin) 3 mg PO HS PRN PRN Reason: Insomnia Last Admin: 05/16/18 21:50 Dose: 3 mg Nicotine (Nicoderm Patch) 14 mg TD Q24HR [facility] Last Admin: 05/16/18 16:19 Dose: 14 mg Senna/Docusate Sodium (Senokot S) 2 tab PO BID PRN PRN Reason: Constipation Sodium Chloride (Flush - Normal Saline) 10 ml IVF PRN PRN PRN Reason: Saline Flush
[2018-05-17 15:20] LABS: Alpha 1 0.3 g/dL (0.0-0.4); Alpha 2 0.6 g/dL (0.4-1.0); Gamma 1.2 g/dL (0.4-1.8); Globulin, Total 3.1 g/dL (2.2-3.9); M-Spike Not Observed g/dL (Not Observed)
[2018-05-17] MEDS: Nicotine 14 MG PATCH TD SCH (17:04)
[2018-05-18] MEDS: Sodium Chloride 0.9% 1,000 ML IV SCH ×3 (01:01→17:03)
[2018-05-18] MEDS: HYDROcodone/Acetaminophen 5/325 mg Tablet PO PRN ×2 (02:37→22:23)
[2018-05-18 07:28] LABS: #Eosinphils 0.4 thou/uL (0.0-0.7); #Lymphocytes 1.3 thou/uL (1.20-3.40); #Monocytes 0.6 thou/uL (0.11-0.59); #Neutrophils 2.2 thou/uL (1.40-6.50); %Basophils 0.2 % (0.0-1.0); %Eosinophils 8.2 % (0.0-10.0); %Lymphocytes 28.8 % (21.0-51.0); %Monocytes 13.3 % (0.0-10.0); %Neutrophils 49.6 % (42.0-75.0); Mean Corpuscular HGB CONC 33.9 g/dL (32.0-36.0); Mean Corpuscular Hemoglobin 33.2 pg (27.0-31.0); Mean Corpuscular Volume 97.9 fL (78.0-98.0); Platelet Count 43 thou/uL (130-400); RBC Distribution Width 18.8 % (11.5-14.5); Red Blood Cell (RBC) Count 2.11 mill/uL (4.70-6.10); White Blood Cell (WBC) Count 4.3 thou/uL (4.8-10.8)
[2018-05-18 07:30] LABS: Anion Gap 13 mmol/L (10-20); BUN (Urea Nitrogen) 28 mg/dL (8.4-25.7); Calc. Creatinine Clearance 58 mL/min (70-130); Calcium 8.5 mg/dL (7.8-10.44); Carbon Dioxide 23 mmol/L (23-31); Chloride 109 mmol/L (98-107); Estimated GFR-MDRD 64; Glucose 153 mg/dL (80-115); Potassium 3.7 mmol/L (3.5-5.1); Sodium 141 mmol/L (136-145)
[2018-05-18] MEDS: Amlodipine 5 MG TAB PO SCH (08:26)
[2018-05-18] MEDS: Lisinopril 10 MG TAB PO SCH (08:26)
[2018-05-18] MEDS: Cyanocobalamin (Vitamin B-12) 1,000 MCG TAB PO SCH (08:27)
[2018-05-18] MEDS: Folic Acid 1 MG TAB PO SCH (08:30)
--- NOTE | 2018-05-18 12:02 | ULT ---
THYROID ULTRASOUND: Indication: Thyroid goiter. FINDINGS: There is diffuse enlargement of the heterogeneous right thyroid lobe. Within the left thyroid lobe th ere are multiple cystic nodules and a dominant cystic and solid nodule is seen with an approximately diameter of 3 cm. Overall enlargement of the thyroid gland is present diffusely. IMPRESSION: Ultrasound findings most consistent with markedly enlarged thyroid gland related to multinodular goit er. POS: STANLEY
--- NOTE | 2018-05-18 12:07 | NM ---
WHOLE BODY BONE SCAN: CLINICAL HISTORY: Abnormal lytic lesions on preceding CT exam involving left ileum. Request for percutaneous biopsy of the bone lesions was requested. Review of the imaging prior to procedure did reveal findings which are indicative of Paget disease and, therefore, bone scan was recommended prior to consideration for biopsy. RADIOPHARMACEUTICAL: 30.4 mCi Technetium 99m-MDP IV. FINDINGS: There is abnormal increased radiotracer activity conforming to the left hemipelvis, which spans the l eft iliac ala along its superior and lateral margin and extends inferiorly through the region of the left acetabulum and into the left pubis. These extend well beyond the confines of the focal lucencie s on CT. The findings demonstrate imaging features characteristic of Paget disease. Scattered degenerative changes are seen within the axial and appendicular skeleton. There is excrete d urinary contaminate overlying the inferior pelvis. IMPRESSION: Left hemipelvic abnormal scintigraphic activity which does extend well beyond the confines of the pre viously described lucencies of the left hemipelvis on CT exam. Scintigraphic findings, when correlat ing with CT imaging, are consistent with Paget disease. POS: STANLEY
--- NOTE | 2018-05-18 13:10 | PDOC.PN ---
- Subjective Encounter Start Date: 05/18/18 Encounter Start Time: 08:20 Pt seen for followup re: pancytopenia. Denies chest pain, shortness of breath, fevers or chills. - Objective Resuscitation Status - Order Detail: 05/12/18 16:07 Resuscitation Status Routine Resuscitation Status: FULL: Full Resuscitation Discussed with: patient SHERRI Reviewed: Yes Vital Signs & Weight: Vital Signs (12 hours) Temp Pulse Resp BP BP BP Pulse Ox 05/18/18 08:26 83 178/71 H 05/18/18 08:00 98 05/18/18 07:37 98.8 F 83 18 178/71 H 98 05/18/18 04:00 99.4 F 80 16 174/60 H 97 Weight Weight 175 lb I&O: 05/17/18 05/18/18 05/19/18 06:59 06:59 06:59 Intake Total 490 250 Balance 490 250 Result Diagrams: 05/18/18 06:55 05/18/18 06:55 Additional Labs: Accuchecks 05/18/18 05/18/18 05/17/18 12:06 04:19 19:32 POC Glucose 221 H 178 H 188 H 05/17/18 16:41 POC Glucose 248 H labs reviewed by me Phys Exam - Physical Examination Constitutional: NAD HEENT: moist MMs Neck: no nodes neck mass Respiratory: clear to auscultation bilateral Cardiovascular: RRR Gastrointestinal: soft Neurological: moves all 4 limbs Psychiatric: normal affect Dx/Plan (1) Pancytopenia Code(s): D61.818 - OTHER PANCYTOPENIA Status: Acute Comment: Await SPEP (2) Neck mass Code(s): R22.1 - LOCALIZED SWELLING, MASS AND LUMP, NECK Status: Acute Comment: Pt went to IR for biopsy but became agitated and belligerent. Refused biopsy of neck mass, may need to have it done as outpatient. (3) SHIRLENE (acute kidney injury) Code(s): N17.9 - ACUTE KIDNEY FAILURE, UNSPECIFIED Status: Acute Comment: started on IV fluids (4) DM2 (diabetes mellitus, type 2) Status: Chronic Comment: reasonablly controlled (5) CAD (coronary artery disease) Code(s): I25.10 - ATHSCL HEART DISEASE OF [place] CORONARY ARTERY W/O ANG PCTRS Status: Chronic Comment: stable - Plan * Nuclear bone scan is concerning for Paget's disease. Review of Systems - Review of Systems Cardiovascular: negative: chest pain, palpitations, orthopnea, paroxysmal nocturnal dyspnea, edema, light headedness Gastrointestinal: negative: Nausea, Vomiting, Abdominal Pain, Diarrhea, Constipation, Melena, Hematochezia - Medications/Allergies Allergies/Adverse Reactions: Allergies Allergy/AdvReac Type Severity Reaction Status Date / Time No Known Drug Allergies Allergy Verified 05/12/18 16:07 Medications: Current Medications Acetaminophen (Tylenol) 650 mg PO Q4H PRN PRN Reason: Headache/Fever/Mild Pain (1-3) Last Admin: 05/16/18 01:13 Dose: 650 mg Hydrocodone Bitart/Acetaminophen ([place] 5/325) 1 tab PO Q6H PRN PRN Reason: Pain 4-6 Last Admin: 05/18/18 02:37 Dose: 1 tab Amlodipine Besylate (Norvasc) 5 mg PO DAILY [facility] Last Admin: 05/18/18 08:26 Dose: 5 mg Cyanocobalamin (Vitamin B-12) 1,000 mcg PO DAILY [facility] Last Admin: 05/18/18 08:27 Dose: 1,000 mcg Dextrose/Water (Dextrose 50%) 25 gm SLOW IVP PRN PRN PRN Reason: Hypoglycemia Folic Acid (Folvite) 1 mg PO DAILY [facility] Last Admin: 05/18/18 08:30 Dose: 1 mg Glucagon (Glucagon) 1 mg IM PRN PRN PRN Reason: Hypoglycemia Hydralazine HCl (Apresoline) 10 mg SLOW IVP Q6H PRN PRN Reason: SBP Greater Than 170 Last Admin: 05/16/18 21:49 Dose: 10 mg Dextrose/Water (D5w) 1,000 mls @ 0 mls/hr IV .Q0M PRN PRN Reason: Hypoglycemia Sodium Chloride (Normal Saline 0.9%) 1,000 mls @ 70 mls/hr IV .[id number] [facility] Last Admin: 05/18/18 02:38 Dose: 1,000 mls Insulin Human Lispro (Humalog) 0 units SC .MILD SLIDING SCALE PRN PRN Reason: Mild Correctional Scale Last Admin: 05/17/18 17:09 Dose: 3 unit Lisinopril (Zestril) 10 mg PO DAILY [facility] Last Admin: 05/18/18 08:26 Dose: 10 mg Melatonin (Melatonin) 3 mg PO HS PRN PRN Reason: Insomnia Last Admin: 05/16/18 21:50 Dose: 3 mg Nicotine (Nicoderm Patch) 14 mg TD Q24HR [facility] Last Admin: 05/17/18 17:04 Dose: 14 mg Senna/Docusate Sodium (Senokot S) 2 tab PO BID PRN PRN Reason: Constipation Sodium Chloride (Flush - Normal Saline) 10 ml IVF PRN PRN PRN Reason: Saline Flush
[2018-05-18] MEDS: Nicotine 14 MG PATCH TD SCH (17:00)
[2018-05-19 07:15] LABS: Hemoglobin 7.4 g/dL (14.0-18.0); Mean Corpuscular HGB CONC 33.4 g/dL (32.0-36.0); Mean Corpuscular Hemoglobin 33.1 pg (27.0-31.0); Mean Corpuscular Volume 98.9 fL (78.0-98.0); Mean Platelet Volume 10.1 fL (7.4-10.4); Platelet Count 31 thou/uL (130-400); RBC Distribution Width 18.4 % (11.5-14.5); Red Blood Cell (RBC) Count 2.23 mill/uL (4.70-6.10); White Blood Cell (WBC) Count 4.7 thou/uL (4.8-10.8)
[2018-05-19 07:18] LABS: Anion Gap 14 mmol/L (10-20); BUN (Urea Nitrogen) 25 mg/dL (8.4-25.7); Calc. Creatinine Clearance 62 mL/min (70-130); Calcium 8.7 mg/dL (7.8-10.44); Carbon Dioxide 19 mmol/L (23-31); Chloride 111 mmol/L (98-107); Estimated GFR-MDRD 69; Glucose 172 mg/dL (80-115); Sodium 140 mmol/L (136-145)
[2018-05-19 08:00] LABS: Band 3 % (5-11); Bite Cells SLIGHT = 2-5 cells (100X) (0-1/hpf); Eosinophils 6 % (0-10); Lymphocytes 22 % (21-51); MDiff Complete? YES; Monocytes 10 % (0-10); Myelocyte 1 % (0-0); Neutrophil 58 % (42-75); Platelet Morphology Comment Appears Decreased; Polychromasia SLIGHT = 2-3 cells (100X) (0-2/hpf); Schistocytes SLIGHT = 2-5 cells (100X) (0-1/hpf)
[2018-05-19] MEDS: Lisinopril 10 MG TAB PO SCH (08:12)
[2018-05-19] MEDS: Amlodipine 5 MG TAB PO SCH (08:12)
[2018-05-19] MEDS: Folic Acid 1 MG TAB PO SCH (08:13)
[2018-05-19] MEDS: Cyanocobalamin (Vitamin B-12) 1,000 MCG TAB PO SCH (08:13)
--- NOTE | 2018-05-19 11:23 | PQF ---
CLINICAL DOCUMENTATION IMPROVEMENT CLARIFICATION FORM: ICD-10 Updated PLEASE DO AN ADDENDUM TO THE PROGRESS NOTE WITH ANY DOCUMENTATION UPDATES OR ADDITIONS AND CARRY THROUGH TO DC SUMMARY. THANK YOU. DATE: 05/19/2018 ATTN: Dr. Parsons Please exercise your independent, professional judgment in responding to the clarification form. Clinical indicators are provided on the bottom of this form for your review Please check appropriate box(s): [ ] I (concur) with the Nursing Assessment findings as stated below. [ ] Pressure Ulcer: (Stage I: Erythema; Stage II: Partial thickness; Stage III : Full thickness; Stage IV: Necrosis to muscle/bone) [ ] Location: POA: [ ] Yes [ ] No [ ] Unable to determine Stage (I to IV):___(Left___Right___Bilateral___N/A___) [ ] Location: POA: [ ] Yes [ ] No [ ] Unable to determine Stage (I to IV): ___(Left___Right___Bilateral___N/A___) [ ] No pressure ulcer diagnosis [ ] Other diagnosis [ ] Unable to determine In addition, please specify: Present on Admission (POA): [ ] Yes [ ] No [ ] Unable to determine For continuity of documentation, please document condition throughout progress notes and discharge summary. Thank You. CLINICAL INDICATORS - SIGNS / SYMPTOMS / LABS Nursing Assessment 05/12/2018 @ 1700: Sacrococcygeal Pressure Ulcer. Stage II RISKS: H&P 05/12: He is currently confined to the bed. Hx DM 2, HTN. Presenting with SHIRLENE. Thrombocytopenia. Hypoglycemia. TREATMENT: SKIN INTERVENTIONS per Nursing protocol. Skin kept from excessive moisture. Ulcer Dressing: Mepilex Pre-ulcer skin changes limited to persistent focal edema (Stage 1) Abrasion, blister, partial thickness skin loss involving epidermis and/or dermis (Stage 2) Full thickness skin loss involving damage or necrosis of SQ tissue. (Stage 3) Necrosis of soft tissue through to underlying muscle, tendon, or bone. (Stage 4) Purple or maroon discolored skin or blood filled blister Thank you, Beth (This form is maintained as a part of the permanent medical record) 2014 [employer], [email or web address]. All Rights Reserved Beth El RN, BSN [email or web address] Office: [phone] [facility]
[2018-05-19] MEDS: HumaLOG 300 UNITS/3 ML VIAL SC PRN (12:54)
[2018-05-19] MEDS: Nicotine 14 MG PATCH TD SCH (15:25)
--- NOTE | 2018-05-19 15:37 | PDOC.PN ---
- Subjective Encounter Start Date: 05/19/18 Encounter Start Time: 15:36 Subjective: Admitted with worsening weakness and inability to ambulant. Declined Neck -: mass biopsy. - Objective Resuscitation Status - Order Detail: 05/12/18 16:07 Resuscitation Status Routine Resuscitation Status: FULL: Full Resuscitation Discussed with: patient Vital Signs & Weight: Vital Signs (12 hours) Temp Pulse Resp BP BP Pulse Ox 05/19/18 08:12 87 188/82 H 05/19/18 08:00 98 05/19/18 07:39 98.6 F 87 20 188/82 H 98 Weight Weight 175 lb I&O: 05/18/18 05/19/18 05/20/18 06:59 06:59 06:59 Intake Total 250 480 Balance 250 480 Result Diagrams: 05/19/18 06:45 05/19/18 06:45 Additional Labs: Accuchecks 05/19/18 05/19/18 05/18/18 11:56 04:41 19:29 POC Glucose 268 H 183 H 244 H 05/18/18 16:23 POC Glucose 209 H Phys Exam - Physical Examination HEENT: moist MMs, sclera anicteric Right sided irregulan non tender neck mass fair air entry bilaterally. No distreess Cardiovascular: RRR, no significant murmur Gastrointestinal: soft, non-tender, no distention, positive bowel sounds Musculoskeletal: no edema mild contracture of the right medial 3 fingers Neurological: moves all 4 limbs power 3-/5 on the right upper limb, other limbs 4 Psychiatric: normal affect, A&O x 3 Dx/Plan (1) Multinodular goiter (nontoxic) Code(s): E04.2 - NONTOXIC MULTINODULAR GOITER Status: Acute (2) Paget disease of bone Code(s): M88.9 - OSTEITIS DEFORMANS OF UNSPECIFIED BONE Status: Acute (3) Weakness of right upper extremity Code(s): R29.898 - OTH SYMPTOMS AND SIGNS INVOLVING THE MUSCULOSKELETAL SYSTEM Status: Acute (4) Dupuytren's contracture of right hand Code(s): M72.0 - PALMAR FASCIAL FIBROMATOSIS [DUPUYTREN] Status: Acute (5) SHIRLENE (acute kidney injury) Code(s): N17.9 - ACUTE KIDNEY FAILURE, UNSPECIFIED Status: Acute Comment: started on IV fluids (6) Neck mass Code(s): R22.1 - LOCALIZED SWELLING, MASS AND LUMP, NECK Status: Acute Comment: Pt went to IR for biopsy but became agitated and belligerent. Refused biopsy of neck mass, may need to have it done as outpatient. (7) Decubitus ulcer, stage 2 Code(s): L89.92 - PRESSURE ULCER OF UNSPECIFIED SITE, STAGE 2 Status: Acute Qualifiers: Pressure injury location: sacral region Qualified Code(s): L89.152 - Pressure ulcer of sacral region, stage 2 - Plan Change NS to LR. PT/OT eval and treat -: Continue supportive care. -: Repeat CBC and BMP in the am. * .
[2018-05-19] MEDS: Lactated Ringer's 1,000 ML IV SCH (17:06)
[2018-05-20] MEDS: HumaLOG 300 UNITS/3 ML VIAL SC PRN ×2 (06:05→16:43)
[2018-05-20] MEDS: Cyanocobalamin (Vitamin B-12) 1,000 MCG TAB PO SCH (07:50)
[2018-05-20] MEDS: Amlodipine 5 MG TAB PO SCH (07:50)
[2018-05-20] MEDS: Folic Acid 1 MG TAB PO SCH (07:50)
[2018-05-20] MEDS: Lisinopril 10 MG TAB PO SCH (07:51)
[2018-05-20 08:45] LABS: Hemoglobin 7.4 g/dL (14.0-18.0); Mean Corpuscular HGB CONC 33.9 g/dL (32.0-36.0); Mean Corpuscular Hemoglobin 32.9 pg (27.0-31.0); Mean Corpuscular Volume 97.2 fL (78.0-98.0); Mean Platelet Volume 10.6 fL (7.4-10.4); Platelet Count 23 thou/uL (130-400); Red Blood Cell (RBC) Count 2.25 mill/uL (4.70-6.10); White Blood Cell (WBC) Count 4.3 thou/uL (4.8-10.8)
[2018-05-20 08:59] LABS: Anion Gap 11 mmol/L (10-20); BUN (Urea Nitrogen) 26 mg/dL (8.4-25.7); Calc. Creatinine Clearance 57 mL/min (70-130); Carbon Dioxide 25 mmol/L (23-31); Chloride 110 mmol/L (98-107); Estimated GFR-MDRD 63; Glucose 178 mg/dL (80-115); Potassium 3.8 mmol/L (3.5-5.1); Sodium 142 mmol/L (136-145)
[2018-05-20 10:25] LABS: Band 10 % (5-11); Eosinophils 10 % (0-10); Lymphocytes 35 % (21-51); MDiff Complete? YES; Neutrophil 43 % (42-75); Reactive Lymphocytes 2 % (0-10)
[2018-05-20] MEDS: Lactated Ringer's 1,000 ML IV SCH (12:06)
--- NOTE | 2018-05-20 15:23 | PDOC.PN ---
- Subjective Encounter Start Date: 05/20/18 Encounter Start Time: 15:21 Subjective: Admitted after he was found by EMS with hypoglycemia with glucose of 37. -: EMS were called due to worsening and inability to anbulate and leg swelling -: No new problem. Weakness persists. - Objective Resuscitation Status - Order Detail: 05/12/18 16:07 Resuscitation Status Routine Resuscitation Status: FULL: Full Resuscitation Discussed with: patient Vital Signs & Weight: Vital Signs (12 hours) Temp Pulse Resp BP BP Pulse Ox 05/20/18 08:00 98 05/20/18 07:51 188/82 H 05/20/18 07:50 87 178/83 H 05/20/18 07:42 97.9 F 87 18 178/73 H 98 Weight Weight 175 lb I&O: 05/19/18 05/20/18 05/21/18 06:59 06:59 06:59 Intake Total 480 240 Balance 480 240 Result Diagrams: 05/20/18 08:20 05/20/18 08:20 Additional Labs: Accuchecks 05/20/18 05/20/18 05/19/18 12:02 05:36 20:18 POC Glucose 241 H 201 H 220 H 05/19/18 15:44 POC Glucose 154 H Phys Exam - Physical Examination Chronically ill looking HEENT: moist MMs Neck: no JVD, supple, full ROM Right sided mass noted Fair air entry bilaterally Cardiovascular: RRR, no rub Gastrointestinal: soft, non-tender, no distention, positive bowel sounds Musculoskeletal: no edema Conscious and alert, some tremor of right upper limb noted. power 4/5 left 3-/5 on the right Psychiatric: A&O x 3 Dx/Plan (1) Multinodular goiter (nontoxic) Code(s): E04.2 - NONTOXIC MULTINODULAR GOITER Status: Acute (2) Paget disease of bone Code(s): M88.9 - OSTEITIS DEFORMANS OF UNSPECIFIED BONE Status: Acute (3) Weakness of right upper extremity Code(s): R29.898 - OTH SYMPTOMS AND SIGNS INVOLVING THE MUSCULOSKELETAL SYSTEM Status: Acute (4) Dupuytren's contracture of right hand Code(s): M72.0 - [place] FASCIAL FIBROMATOSIS [DUPUYTREN] Status: Acute (5) SHIRLENE (acute kidney injury) Code(s): N17.9 - ACUTE KIDNEY FAILURE, UNSPECIFIED Status: Acute Comment: Improving with IVF (6) Neck mass Code(s): R22.1 - LOCALIZED SWELLING, MASS AND LUMP, NECK Status: Acute Comment: Pt went to IR for biopsy but became agitated and belligerent. Refused biopsy of neck mass, may need to have it done as outpatient. (7) Decubitus ulcer, stage 2 Code(s): L89.92 - PRESSURE ULCER OF UNSPECIFIED SITE, STAGE 2 Status: Acute Qualifiers: Pressure injury location: sacral region Qualified Code(s): L89.152 - Pressure ulcer of sacral region, stage 2 Comment: Present on admission. (8) Physical deconditioning Code(s): R53.81 - OTHER [place]ISE Status: Acute (9) Thrombocytopenia Code(s): D69.6 - THROMBOCYTOPENIA, UNSPECIFIED Status: Acute (10) Hypoglycemia Code(s): E16.2 - HYPOGLYCEMIA, UNSPECIFIED Status: Acute (11) Acute metabolic encephalopathy due to hypoglycemia Code(s): G93.41 - METABOLIC ENCEPHALOPATHY; E16.2 - HYPOGLYCEMIA, UNSPECIFIED Status: Acute (12) DM2 (diabetes mellitus, type 2) Status: Chronic Comment: reasonablly controlled - Plan Continue IVF and monitor renal function -: Continue PT -: For discharge to SNF. * .
[2018-05-20] MEDS: Nicotine 14 MG PATCH TD SCH (16:35)
[2018-05-20] MEDS: Melatonin 3 MG TAB PO PRN (23:18)
[2018-05-21 06:45] LABS: Hemoglobin 7.1 g/dL (14.0-18.0); Mean Corpuscular HGB CONC 33.2 g/dL (32.0-36.0); Mean Corpuscular Hemoglobin 32.5 pg (27.0-31.0); Mean Platelet Volume 11.8 fL (7.4-10.4); Platelet Count 20 thou/uL (130-400); RBC Distribution Width 18.1 % (11.5-14.5); Red Blood Cell (RBC) Count 2.19 mill/uL (4.70-6.10); White Blood Cell (WBC) Count 4.6 thou/uL (4.8-10.8)
[2018-05-21 06:58] LABS: Anion Gap 13 mmol/L (10-20); BUN (Urea Nitrogen) 30 mg/dL (8.4-25.7); Calc. Creatinine Clearance 55 mL/min (70-130); Calcium 8.8 mg/dL (7.8-10.44); Carbon Dioxide 23 mmol/L (23-31); Chloride 108 mmol/L (98-107); Estimated GFR-MDRD 61; Glucose 189 mg/dL (80-115); Potassium 3.9 mmol/L (3.5-5.1); Sodium 140 mmol/L (136-145)
[2018-05-21 08:04] LABS: Band 3 % (5-11); Eosinophils 13 % (0-10); Lymphocytes 24 % (21-51); MDiff Complete? YES; Monocytes 8 % (0-10); Neutrophil 52 % (42-75); Platelet Morphology Comment Appears Decreased
[2018-05-21] MEDS: Lisinopril 10 MG TAB PO SCH (09:07)
[2018-05-21] MEDS: Folic Acid 1 MG TAB PO SCH (09:07)
[2018-05-21] MEDS: Amlodipine 5 MG TAB PO SCH (09:08)
[2018-05-21] MEDS: Cyanocobalamin (Vitamin B-12) 1,000 MCG TAB PO SCH (09:08)
[2018-05-21] MEDS: Lactated Ringer's 1,000 ML IV SCH (11:36)
[2018-05-21] MEDS: hydrALAZINE 20 MG/ML VIAL SLOW IVP PRN ×2 (11:36→17:03)
[2018-05-21] MEDS: HumaLOG 300 UNITS/3 ML VIAL SC PRN ×3 (11:38→21:09)
--- NOTE | 2018-05-21 15:02 | PDOC.PN ---
- Subjective Encounter Start Date: 05/21/18 Encounter Start Time: 15:00 Subjective: No new problem -: Awaiting SNF placement -: Denied chest pain or fever - Objective Resuscitation Status - Order Detail: 05/12/18 16:07 Resuscitation Status Routine Resuscitation Status: FULL: Full Resuscitation Discussed with: patient Vital Signs & Weight: Vital Signs (12 hours) Temp Pulse Resp BP BP Pulse Ox 05/21/18 11:36 84 173/83 H 05/21/18 11:15 98.7 F 84 18 173/83 H 98 05/21/18 09:08 83 170/82 H 05/21/18 09:07 170/82 H 05/21/18 08:00 97 05/21/18 07:36 97.6 F 83 18 170/82 H 97 Weight Weight 175 lb I&O: 05/20/18 05/21/18 05/22/18 06:59 06:59 06:59 Intake Total 240 325 360 Balance 240 325 360 Result Diagrams: 05/21/18 06:21 05/21/18 06:21 Additional Labs: Accuchecks 05/21/18 05/21/18 05/20/18 11:12 03:38 20:09 POC Glucose 286 H 222 H 180 H 05/20/18 16:39 POC Glucose 247 H Phys Exam - Physical Examination HEENT: PERRLA Right sided neck mass fair air entry bilaterally . No obvious crackles or rhonchi Cardiovascular: RRR Gastrointestinal: soft, non-tender, no distention, positive bowel sounds Musculoskeletal: no edema, pulses present decreased extension of the right medial 3 fingers noted. conscious and alert. cranial nerves 2-12 intact. power 3/5 right limbs and 4/5 on the left. mild tremor especially with intention of the right arm Psychiatric: A&O x 3 Dx/Plan (1) Multinodular goiter (nontoxic) Code(s): E04.2 - NONTOXIC MULTINODULAR GOITER Status: Acute Comment: Patient declined biopsy. (2) Paget disease of bone Code(s): M88.9 - OSTEITIS DEFORMANS OF UNSPECIFIED BONE Status: Acute Comment: Given bone scan and CT reports (3) Weakness of right upper extremity Code(s): R29.898 - OTH SYMPTOMS AND SIGNS INVOLVING THE MUSCULOSKELETAL SYSTEM Status: Acute Comment: Etiology unclear. ? prior CVA or subacute CVA. patient denied history of CVA. (4) Dupuytren's contracture of right hand Code(s): M72.0 - PALMAR FASCIAL FIBROMATOSIS [DUPUYTREN] Status: Acute Comment: Etiology unclear (5) SHIRLENE (acute kidney injury) Code(s): N17.9 - ACUTE KIDNEY FAILURE, UNSPECIFIED Status: Acute Comment: Improved with IVF to baseline (6) Neck mass Code(s): R22.1 - LOCALIZED SWELLING, MASS AND LUMP, NECK Status: Acute Comment: Pt went to IR for biopsy but became agitated and belligerent. Refused biopsy of neck mass, may need to have it done as outpatient. (7) Decubitus ulcer, stage 2 Code(s): L89.92 - PRESSURE ULCER OF UNSPECIFIED SITE, STAGE 2 Status: Acute Qualifiers: Pressure injury location: sacral region Qualified Code(s): L89.152 - Pressure ulcer of sacral region, stage 2 Comment: Present on admission. (8) Physical deconditioning Code(s): R53.81 - OTHER MALAISE Status: Acute Comment: PT/OT following. (9) Thrombocytopenia Code(s): D69.6 - THROMBOCYTOPENIA, UNSPECIFIED Status: Acute Comment: S/p platelet transfusion. Hemotology on the case (10) Hypoglycemia Code(s): E16.2 - HYPOGLYCEMIA, UNSPECIFIED Status: Acute Comment: Resolved. (11) Acute metabolic encephalopathy due to hypoglycemia Code(s): G93.41 - METABOLIC ENCEPHALOPATHY; E16.2 - HYPOGLYCEMIA, UNSPECIFIED Status: Acute Comment: Resolved. (12) DM2 (diabetes mellitus, type 2) Status: Chronic Comment: reasonablly controlled - Plan DC IVF. -: Increase amlodipine to 10 daily. -: Get CT head. -: Continue PT/OT -: Need SNF placement * .
[2018-05-21] MEDS ORDERED: Amlodipine 5 MG TAB PO SCH (15:15)
--- NOTE | 2018-05-21 16:10 | CT ---
NONCONTRAST CT HEAD: 05/21/18 HISTORY: Right sided hemiparesis. COMPARISON: None available. FINDINGS: There is diffuse cerebral volume loss with greater degree of cerebellar volume loss. There is no evid ence of an acute cortical infarction, hemorrhage, mass effect, or midline shift. Ventricular system i s normal in size, shape and position for the degree of volume loss. There is a defect in the right me dial orbital wall which may be developmental in origin versus remote injury. The visualized paranasal sinuses and mastoid air cells are clear. The calvarial structures are intact. IMPRESSION: 1. No acute intracranial abnormalities are demonstrated. 2. Cerebral and cerebellar volume loss with greater degree of cerebellar volume loss. 3. Dense vascular calcifications in the carotid siphons and distal vertebral arteries. POS: STANLEY
[2018-05-21] MEDS: Nicotine 14 MG PATCH TD SCH (16:59)
[2018-05-21] MEDS: Senokot S 8.6-50 MG TAB PO PRN (21:08)
[2018-05-21] MEDS: Melatonin 3 MG TAB PO PRN (23:24)
[2018-05-22] MEDS: HumaLOG 300 UNITS/3 ML VIAL SC PRN (05:05)
[2018-05-22] MEDS: Lisinopril 10 MG TAB PO SCH (08:15)
[2018-05-22] MEDS: Folic Acid 1 MG TAB PO SCH (08:15)
[2018-05-22] MEDS: Amlodipine 10 MG TAB PO SCH (08:15)
[2018-05-22] MEDS: Cyanocobalamin (Vitamin B-12) 1,000 MCG TAB PO SCH (08:15)
[2018-05-22] MEDS: Senokot S 8.6-50 MG TAB PO PRN (08:37)
--- NOTE | 2018-05-22 09:52 | PRG ---
DATE OF SERVICE: 05/17/2018 SUBJECTIVE: The patient is seen and examined at the bedside. He does not have any pain. He feels weak. His appetite is fair. OBJECTIVE: VITAL SIGNS: Blood pressure is 164/68, pulse is 101, respiratory rate is 18, O2 saturation is 98% on room air, and his temperature is 98.8, maximal temperature is 99.0. HEENT: His head is atraumatic and normocephalic. Eyes are PERRLA. Sclerae are nonicteric. Oral mucosa is moist. NECK: Supple. There is a big enlargement of the thyroid gland, especially on the right side, somewhat tender to touch. LUNGS: Clear. HEART: S1 and S2, normal. No S3. No S4. ABDOMEN: Soft and nontender. Bowel sounds are present. No organomegaly. EXTREMITIES: No clubbing, cyanosis, or edema. NEUROLOGICAL: He follows my commands. He does not have any motor deficits. He moves his all four extremities, although the lower extremities show some significant weakness, 3/5 similar bilaterally. LABORATORY DATA: Labs showed glycemia ranging from [address] of the brain done yesterday showed no acute intracranial abnormalities. There was a cerebral volume loss with greater degree of cerebral volume loss and dense vascular calcification in the carotid siphons and distal vertebral arteries. IMPRESSION: 1. Multinodular goiter. The patient declined biopsy. 2. Possible Paget's disease of bone that is per CT findings. 3. Weakness in lower extremities with negative CT for any acute cerebrovascular accident. 4. Uncontrolled diabetes mellitus. We will start him back on his glipizide 10 mg twice a day. 5. Decubitus ulcer stage II. 6. Physical deconditioning. 7. Thrombocytopenia. The patient was seen by mold preparer, who transfused him with 1 unit of platelets and it was felt that thrombocytopenia was secondary to his B12 and folate deficiency. 8. Acute metabolic encephalopathy due to hypoglycemia. 9. Diabetes mellitus. PLAN: Apparently, the patient's daughter came from [place] last night and she is coming back today. I will have a discussion with her, explaining her, what needs to be done since the patient did not have biopsy of his neck mass. He will need to have followup with MD for evaluation of possible Paget's disease. Also, he will have to have some PT for his lower extremity weakness. I am going to restart him also on his carvedilol since his blood pressure is running still on the higher side. We will continue his amlodipine and lisinopril. We will continue PT and OT. Job ID: [id number]
[2018-05-22] MEDS ORDERED: Magnesium Citrate 300 ML BOT PO ONE (11:00)
[2018-05-22] MEDS ORDERED: Bisacodyl 10 MG SUPP PR SCH (11:00)
[2018-05-22] MEDS: Nicotine 14 MG PATCH TD SCH (17:14)
[2018-05-22 18:30] LABS: Bacteria/HPF Rare-Few HPF (None Seen); Hyaline Casts/LPF NONE SEEN LPF (0-3 Hyaline); Squamous Epithelial 0-3 HPF (0-3); WBC/HPF None Seen HPF (0-3)
[2018-05-22] MEDS: glipiZIDE 10 MG TAB PO SCH (20:42)
[2018-05-22] MEDS: Atorvastatin Calcium 20 MG TAB PO SCH (20:42)
--- NOTE | 2018-05-22 21:25 | CON ---
DATE OF CONSULTATION: HISTORY OF PRESENT ILLNESS: The patient is a 68-year-old gentleman who was admitted on 05/12/2018 with complaints of generalized weakness. He underwent a CT of abdomen, pelvis, chest, and neck because of a neck mass. This subsequently showed some thickened rectal saldana. He has had no blood, he tends to have constipation. He reports he has had no bowel movements since he has been admitted. However, this was corrected by his nurse who said he had several bowel movements today with some laxatives. He has had no abdominal pain. PAST MEDICAL HISTORY: Significant for diabetes mellitus, hypertension, hyperlipidemia. PAST SURGICAL HISTORY: Includes appendectomy and knee surgery. ALLERGIES: NO KNOWN MEDICAL ALLERGIES. HOME MEDICATIONS: Include; 1. Tramadol 50 mg p.o. t.i.d. p.r.n. 2. Glucophage 1000 mg p.o. b.i.d. 3. Simvastatin 40 mg p.o. at bedtime. 4. Lisinopril and hydrochlorothiazide 1 p.o. daily. 5. Gabapentin 300 mg p.o. t.i.d. 6. Plavix 75 mg p.o. daily. 7. Norvasc 10 mg p.o. daily. 8. Glipizide 10 mg p.o. b.i.d. 9. Coreg 25 mg p.o. daily. SOCIAL HISTORY: He does not smoke or drink. FAMILY HISTORY: Negative. REVIEW OF SYSTEMS: Ten systems were reviewed and were negative except for above. PHYSICAL EXAMINATION: GENERAL: Shows an elderly black male, in no acute distress. VITAL SIGNS: Temperature 98.8, pulse 101, respiratory rate 18, blood pressure 164/68. HEENT: Unremarkable. NECK: Supple. CHEST: Clear. CARDIOVASCULAR: Regular rate and rhythm. ABDOMEN: Soft, nontender without organomegaly or masses. Bowel sounds are present, normoactive. RECTAL: Shows a large amount of stool in the vault. There is no impaction, but some of the stool was attempted to be removed. There were no hard stools, but the rectum was full of stool. EXTREMITIES: Show tremor and weakness. LABORATORY DATA: Shows a white blood cell count of 4.6, hemoglobin 7.1, hematocrit 21.8 with MCV of 98, and platelet count is 20,000. PT is 14.5 with an INR of 1.1. TSH is 0.5103. Vitamin B12 level was 202. Folate level is 4.5. LFTs are normal. Chest, abdomen, and pelvic CT showed a large heterogeneous thyroid gland, lucencies in the left iliac bone, prominent atherosclerosis, and circumferential wall thickening of the rectum. ASSESSMENT: 1. Stercoral proctitis. 2. Thyroid mass. 3. Pancytopenia. 4. Vitamin B12 and folate deficiency. 5. Chronic constipation. RECOMMENDATIONS: 1. Mag citrate one bottle. 2. Begin MiraLAX. 3. We will follow with you. Job ID: [id number]
[2018-05-23] MEDS: Melatonin 3 MG TAB PO PRN ×2 (02:03→23:46)
[2018-05-23] MEDS: hydrALAZINE 20 MG/ML VIAL SLOW IVP PRN (05:36)
--- NOTE | 2018-05-23 08:56 | PRG ---
DATE OF SERVICE: 05/23/2018 SUBJECTIVE: The patient has not had any further bowel movements this morning. He denies any rectal discomfort. OBJECTIVE: VITAL SIGNS: Temperature 98.8, pulse 83, respiratory rate 16, blood pressure 174/76. CHEST: Clear. CARDIOVASCULAR: Regular rate and rhythm. ABDOMEN: Benign. LABORATORY DATA: Laboratory shows no new laboratory this morning. ASSESSMENT: 1. Stercoral proctitis. 2. Pancytopenia. 3. Folate and vitamin B12 deficiency. 4. Immobility. RECOMMENDATIONS: 1. Add milk of magnesia to present bowel regimen. 2. May consider magnesium citrate if having further constipation. Job ID: [id number]
[2018-05-23] MEDS: Lisinopril 10 MG TAB PO SCH (09:46)
[2018-05-23] MEDS: Folic Acid 1 MG TAB PO SCH (09:46)
[2018-05-23] MEDS: glipiZIDE 10 MG TAB PO SCH ×2 (09:46→20:28)
[2018-05-23] MEDS: Carvedilol 25 MG TAB PO SCH (09:46)
[2018-05-23] MEDS: Cyanocobalamin (Vitamin B-12) 1,000 MCG TAB PO SCH (09:46)
[2018-05-23] MEDS: Amlodipine 10 MG TAB PO SCH (09:46)
[2018-05-23] MEDS: Polyethylene Glycol 3350 17 GM Packet PO SCH (09:46)
[2018-05-23] MEDS: Milk Of Magnesia 30 ML UDCUP PO SCH (09:50)
[2018-05-23] MEDS: HumaLOG 300 UNITS/3 ML VIAL SC PRN ×2 (11:59→20:31)
--- NOTE | 2018-05-23 12:09 | PDOC.PN ---
- Subjective Encounter Start Date: 05/23/18 Encounter Start Time: 08:20 Patient seen and examined. No new complaints. No overnight events - Objective Resuscitation Status - Order Detail: 05/12/18 16:07 Resuscitation Status Routine Resuscitation Status: FULL: Full Resuscitation Discussed with: patient SHERRI Reviewed: Yes Vital Signs & Weight: Vital Signs (12 hours) Temp Pulse Resp BP BP BP Pulse Ox 05/23/18 09:46 93 149/71 H 05/23/18 08:00 98.2 F 93 18 149/71 H 98 05/23/18 05:36 83 05/23/18 04:00 98.8 F 83 16 174/76 H 99 05/23/18 01:30 98.8 F 80 17 163/76 H 96 Weight Admit Weight 175 lb Weight 175 lb I&O: 05/22/18 05/23/18 05/24/18 06:59 06:59 06:59 Intake Total 1450 1040 Output Total 1225 Balance 1450 -185 Result Diagrams: 05/21/18 06:21 05/21/18 06:21 Additional Labs: Accuchecks 05/23/18 05/22/18 05/22/18 05:22 20:33 16:39 POC Glucose 173 H 231 H 290 H Radiology Reviewed by me: Yes Phys Exam - Physical Examination Constitutional: NAD HEENT: PERRLA, moist MMs, sclera anicteric Neck: no JVD, supple Respiratory: no wheezing, no rales, no rhonchi Cardiovascular: RRR, no significant murmur, no rub Gastrointestinal: soft, non-tender, no distention, positive bowel sounds Musculoskeletal: no edema, pulses present Neurological: non-focal, normal sensation, moves all 4 limbs Lymphatic: no nodes Psychiatric: normal affect, A&O x 3 Skin: no rash, normal turgor Dx/Plan (1) SHIRLENE (acute kidney injury) Code(s): N17.9 - ACUTE KIDNEY FAILURE, UNSPECIFIED Status: Acute Comment: Improved with IVF to baseline (2) Acute metabolic encephalopathy due to hypoglycemia Code(s): G93.41 - METABOLIC ENCEPHALOPATHY; E16.2 - HYPOGLYCEMIA, UNSPECIFIED Status: Acute Comment: Resolved. (3) B12 deficiency Code(s): E53.8 - DEFICIENCY OF OTHER SPECIFIED B GROUP VITAMINS Status: Acute (4) Decubitus ulcer, stage 2 Code(s): L89.92 - PRESSURE ULCER OF UNSPECIFIED SITE, STAGE 2 Status: Acute Qualifiers: Pressure injury location: sacral region Qualified Code(s): L89.152 - Pressure ulcer of sacral region, stage 2 Comment: Present on admission. (5) Dupuytren's contracture of right hand Code(s): M72.0 - PALMAR FASCIAL FIBROMATOSIS [DUPUYTREN] Status: Acute Comment: Etiology unclear (6) Folate deficiency Code(s): E53.8 - DEFICIENCY OF OTHER SPECIFIED B GROUP VITAMINS Status: Acute (7) Hypoglycemia Code(s): E16.2 - HYPOGLYCEMIA, UNSPECIFIED Status: Acute Comment: Resolved. (8) Multinodular goiter (nontoxic) Code(s): E04.2 - NONTOXIC MULTINODULAR GOITER Status: Acute Comment: Patient declined biopsy. (9) Pancytopenia Code(s): D61.818 - OTHER PANCYTOPENIA Status: Acute Comment: Await SPEP (10) Physical deconditioning Code(s): R53.81 - OTHER MALAISE Status: Acute Comment: PT/OT following. (11) Thrombocytopenia Code(s): D69.6 - THROMBOCYTOPENIA, UNSPECIFIED Status: Acute Comment: S/p platelet transfusion. Hemotology on the case (12) Weakness of right upper extremity Code(s): R29.898 - [facility] SYMPTOMS AND SIGNS INVOLVING THE MUSCULOSKELETAL SYSTEM Status: Acute Comment: Etiology unclear. ? prior CVA or subacute CVA. patient denied history of CVA. (13) CAD (coronary artery disease) Code(s): I25.10 - ATHSCL HEART DISEASE OF [place] CORONARY ARTERY W/O ANG PCTRS Status: Chronic Comment: stable (14) DM2 (diabetes mellitus, type 2) Status: Chronic Comment: reasonablly controlled (15) Paget disease of bone Code(s): M88.9 - OSTEITIS DEFORMANS OF UNSPECIFIED BONE Status: Suspected Comment: Given bone scan and CT reports - Plan cont current plan of care, PT/OT, social work coordinator * pt is not interested in any more work up and testing at this time * he prefers to go to rehab * medication reviewed as below * symptomatic treatment. Review of Systems - Review of Systems ENT: negative: Ear Pain, Ear Discharge, Nose Pain, Nose Discharge, Nose Congestion, Mouth Pain, Mouth Swelling, Throat Pain, Throat Swelling, Other Respiratory: negative: Cough, Dry, Shortness of Breath, Hemoptysis, SOB with Excertion, Pleuritic Pain, Sputum, Wheezing Cardiovascular: negative: chest pain, palpitations, orthopnea, paroxysmal nocturnal dyspnea, edema, light headedness, other Gastrointestinal: negative: Nausea, Vomiting, Abdominal Pain, Diarrhea, Constipation, Melena, Hematochezia, Other Genitourinary: negative: Dysuria, Frequency, Incontinence, Hematuria, Retention , Other Musculoskeletal: negative: Neck Pain, Shoulder Pain, Arm Pain, Back Pain, Hand Pain, Leg Pain, Foot Pain, Other - Medications/Allergies Allergies/Adverse Reactions: Allergies Allergy/AdvReac Type Severity Reaction Status Date / Time No Known Drug Allergies Allergy Verified 05/12/18 16:07 Medications: Current Medications Acetaminophen (Tylenol) 650 mg PO Q4H PRN PRN Reason: Headache/Fever/Mild Pain (1-3) Last Admin: 05/16/18 01:13 Dose: 650 mg Hydrocodone Bitart/Acetaminophen ([place] 5/325) 1 tab PO Q6H PRN PRN Reason: Pain 4-6 Last Admin: 05/18/18 22:23 Dose: 1 tab Amlodipine Besylate (Norvasc) 10 mg PO DAILY [facility] Last Admin: 05/23/18 09:46 Dose: 10 mg Atorvastatin Calcium (Lipitor) 20 mg PO HS [facility] Last Admin: 05/22/18 20:42 Dose: 20 mg Carvedilol (Coreg) 25 mg PO DAILY [facility] Last Admin: 05/23/18 09:46 Dose: 25 mg Cyanocobalamin (Vitamin B-12) 1,000 mcg PO DAILY [facility] Last Admin: 05/23/18 09:46 Dose: 1,000 mcg Dextrose/Water (Dextrose 50%) 25 gm SLOW IVP PRN PRN PRN Reason: Hypoglycemia Folic Acid (Folvite) 1 mg PO DAILY [facility] Last Admin: 05/23/18 09:46 Dose: 1 mg Glipizide (Glucotrol) 10 mg PO BID [facility] Last Admin: 05/23/18 09:46 Dose: 10 mg Glucagon (Glucagon) 1 mg IM PRN PRN PRN Reason: Hypoglycemia Hydralazine HCl (Apresoline) 10 mg SLOW IVP Q6H PRN PRN Reason: SBP Greater Than 170 Last Admin: 05/23/18 05:36 Dose: 10 mg Dextrose/Water (D5w) 1,000 mls @ 0 mls/hr IV .Q0M PRN PRN Reason: Hypoglycemia Insulin Human Lispro (Humalog) 0 units SC .MILD SLIDING SCALE PRN PRN Reason: Mild Correctional Scale Last Admin: 05/22/18 05:05 Dose: 2 unit Lisinopril (Zestril) 10 mg PO DAILY [facility] Last Admin: 05/23/18 09:46 Dose: 10 mg Magnesium Hydroxide (Milk Of Magnesium) 30 ml PO DAILY [facility] Last Admin: 05/23/18 09:50 Dose: 30 ml Melatonin (Melatonin) 3 mg PO HS PRN PRN Reason: Insomnia Last Admin: 05/23/18 02:03 Dose: 3 mg Nicotine (Nicoderm Patch) 14 mg TD Q24HR [facility] Last Admin: 05/22/18 17:14 Dose: 14 mg Polyethylene Glycol (Miralax) 17 gm PO DAILY [facility] Last Admin: 05/23/18 09:46 Dose: 17 gm Senna/Docusate Sodium (Senokot S) 2 tab PO BID PRN PRN Reason: Constipation Last Admin: 05/22/18 08:37 Dose: 2 tab Sodium Chloride (Flush - Normal Saline) 10 ml IVF PRN PRN PRN Reason: Saline Flush
--- NOTE | 2018-05-23 14:41 | CON ---
DATE OF CONSULTATION: 05/23/2018 HISTORY OF PRESENT ILLNESS: This is a 68-year-old male, who I was asked to see today, 23 May 2018, by the hospitalist service. He was admitted on the , so he has been in the hospital a week and a day. He had an admission some acute kidney injury, thrombocytopenia, hypoglycemia, anemia, low platelet counts, hypertension, hyperlipidemia, and neck mass. Does not appear that he is going to pursue any biopsies of neck mass. He has had a bone scan done and looks like he probably has Paget's disease. I cannot see that he has had a PSA done during this admission. He has had a lot of trouble with constipation during this admission. He states that yesterday he started having some bowel movements. He did have difficulty urinating last night as far as I know this is the first time he had difficulty urinating. He had a bladder scan revealing 570 mL and a Leon catheter was inserted and he has that in and that is the reason for the Urology consult. His urinalysis when he was admitted was normal and negative. The urinalysis micro sent yesterday showed 4 to 6 red cells, no white cells, and rare bacteria. He has been afebrile with stable vital signs. I am talking with him. He states that he generally has not had any difficulty with urination. No dysuria. No hematuria. No urinary tract infections that he knows of. No history of prostate cancer or prostate surgery. No family history of prostate cancer that he is aware of. He did have a Leon catheter during the hospitalization in the past. He has not had any history of gross hematuria or kidney stones. PAST SURGICAL HISTORY: I believe he has had knee operation and he has had laparotomy, but I am not sure exactly why this is done. He reports appendectomy being done. He also tells me he had a hernia done, but it looks like a midline laparotomy incision also. PAST MEDICAL HISTORY: Diabetes, high blood pressure, hyperlipidemia, now possibly Paget's disease. PHYSICAL EXAMINATION: His abdomen is soft and nontender. His bladder is not palpable at this point. He is not circumcised. There are no lesions. There is no phimosis. Leon catheter is draining clear urine. Testicles are descended without mass or tenderness. Rectal exam reveals normal tone. The prostate is not very large and is not nodular. Normal rectal tone. No rectal lesions. IMPRESSION: Urinary retention and the patient has been in hospital for few days now with a number of other ailments. One of those being constipation. It is possible that the difficulty urinating which brought on by the constipation is a too often go together. It seems like his bowels are getting back to normal, so it may be reasonable to give him a voiding trial, perhaps tomorrow. Looking at his medication list, he is taking some pain medication that could affect his ability to urinate. If he does not need the pain medication, it would be nice to be able to stop that. He does not appear to be on anything out to worsen it. I will go ahead and place him on some Flomax and get that started and I would like to see him before we remove the Leon tomorrow or the next day depending on how long be here. We will also order PSA; although, his prostate does not appear to be too suspicious at all for prostate cancer. Job ID: [id number]
[2018-05-23 15:13] LABS: Hemoglobin 7.1 g/dL (14.0-18.0); Mean Corpuscular HGB CONC 34.2 g/dL (32.0-36.0); Mean Corpuscular Hemoglobin 33.4 pg (27.0-31.0); Mean Corpuscular Volume 97.9 fL (78.0-98.0); RBC Distribution Width 17.8 % (11.5-14.5); Red Blood Cell (RBC) Count 2.13 mill/uL (4.70-6.10); White Blood Cell (WBC) Count 5.6 thou/uL (4.8-10.8)
[2018-05-23 15:29] LABS: #Eosinphils 0.3 thou/uL (0.0-0.7); #Lymphocytes 1.2 thou/uL (1.20-3.40); #Monocytes 0.8 thou/uL (0.11-0.59); #Neutrophils 3.3 thou/uL (1.40-6.50); %Basophils 0.1 % (0.0-1.0); %Eosinophils 4.6 % (0.0-10.0); %Lymphocytes 21.8 % (21.0-51.0); %Monocytes 13.9 % (0.0-10.0); %Neutrophils 59.6 % (42.0-75.0); Anisocytosis SLIGHT = 6-15 cells (100X) (0-5/hpf); MDiff Complete? YES; Mean Platelet Volume 12.8 fL (7.4-10.4); Platelet Count 11 thou/uL (130-400); Platelet Morphology Comment Appears Decreased
[2018-05-23 15:34] LABS: ALT (SGPT) Less than 7 U/L (8-55); AST (SGOT) 9 U/L (5-34); Albumin 3.2 g/dL (3.4-4.8); Alkaline Phosphatase 100 U/L (40-150); Anion Gap 13 mmol/L (10-20); BUN (Urea Nitrogen) 34 mg/dL (8.4-25.7); Bilirubin, Total 0.3 mg/dL (0.2-1.2); Calc. Creatinine Clearance 50 mL/min (70-130); Calcium 8.9 mg/dL (7.8-10.44); Carbon Dioxide 26 mmol/L (23-31); Chloride 107 mmol/L (98-107); Estimated GFR-MDRD 55; Glucose 145 mg/dL (80-115); Potassium 4.6 mmol/L (3.5-5.1); Protein, Total 6.2 g/dL (5.8-8.1); Sodium 141 mmol/L (136-145)
[2018-05-23] MEDS: Nicotine 14 MG PATCH TD SCH (17:28)
[2018-05-23] MEDS: Atorvastatin Calcium 20 MG TAB PO SCH (20:28)
[2018-05-24 08:19] LABS: #Eosinphils 0.3 thou/uL (0.0-0.7); #Lymphocytes 1.3 thou/uL (1.20-3.40); #Monocytes 0.7 thou/uL (0.11-0.59); #Neutrophils 2.7 thou/uL (1.40-6.50); %Basophils 0.8 % (0.0-1.0); %Eosinophils 6.4 % (0.0-10.0); %Lymphocytes 25.2 % (21.0-51.0); %Monocytes 14.2 % (0.0-10.0); %Neutrophils 53.5 % (42.0-75.0); Mean Corpuscular HGB CONC 34.2 g/dL (32.0-36.0); Mean Corpuscular Hemoglobin 33.7 pg (27.0-31.0); Mean Corpuscular Volume 98.4 fL (78.0-98.0); Mean Platelet Volume 9.9 fL (7.4-10.4); Platelet Count 46 thou/uL (130-400); RBC Distribution Width 17.8 % (11.5-14.5); Red Blood Cell (RBC) Count 2.07 mill/uL (4.70-6.10)
[2018-05-24] MEDS: Lisinopril 10 MG TAB PO SCH (08:47)
[2018-05-24] MEDS: Cyanocobalamin (Vitamin B-12) 1,000 MCG TAB PO SCH (08:48)
[2018-05-24] MEDS: Amlodipine 10 MG TAB PO SCH (08:48)
[2018-05-24] MEDS: glipiZIDE 10 MG TAB PO SCH ×2 (08:48→21:05)
[2018-05-24] MEDS: Carvedilol 25 MG TAB PO SCH (08:48)
[2018-05-24] MEDS: Folic Acid 1 MG TAB PO SCH (08:48)
[2018-05-24] MEDS: Polyethylene Glycol 3350 17 GM Packet PO SCH (08:48)
[2018-05-24] MEDS: Milk Of Magnesia 30 ML UDCUP PO SCH (08:48)
--- NOTE | 2018-05-24 11:46 | PDOC.PN ---
- Subjective Encounter Start Date: 05/24/18 Encounter Start Time: 09:20 Patient seen and examined. No new complaints. No overnight events - Objective Resuscitation Status - Order Detail: 05/12/18 16:07 Resuscitation Status Routine Resuscitation Status: FULL: Full Resuscitation Discussed with: pamela POLANCO Reviewed: Yes Vital Signs & Weight: Vital Signs (12 hours) Temp Pulse Resp BP BP BP Pulse Ox 05/24/18 08:48 78 05/24/18 08:47 149/71 H 05/24/18 07:05 98.9 F 78 16 158/67 H 97 05/24/18 04:00 97.8 F 80 16 145/67 H 96 Weight Admit Weight 175 lb Weight 175 lb I&O: 05/23/18 05/24/18 05/25/18 06:59 06:59 06:59 Intake Total 1040 1625 480 Output Total 1225 1250 Balance -185 375 480 Result Diagrams: 05/24/18 07:34 05/23/18 15:01 Additional Labs: Accuchecks 05/24/18 05/24/18 05/23/18 10:54 05:15 20:32 POC Glucose 260 H 132 H 259 H 05/23/18 05/23/18 16:49 11:29 POC Glucose 153 H 288 H Phys Exam - Physical Examination Constitutional: NAD HEENT: PERRLA, moist MMs, sclera anicteric Neck: no JVD, supple Respiratory: no wheezing, no rales, no rhonchi Cardiovascular: RRR, no significant murmur, no rub Gastrointestinal: soft, non-tender, no distention, positive bowel sounds Musculoskeletal: no edema, pulses present Neurological: non-focal, normal sensation Lymphatic: no nodes Psychiatric: normal affect Skin: no rash, normal turgor Dx/Plan (1) SHIRLENE (acute kidney injury) Code(s): N17.9 - ACUTE KIDNEY FAILURE, UNSPECIFIED Status: Acute Comment: Improved with IVF to baseline (2) Acute metabolic encephalopathy due to hypoglycemia Code(s): G93.41 - METABOLIC ENCEPHALOPATHY; E16.2 - HYPOGLYCEMIA, UNSPECIFIED Status: Acute Comment: Resolved. (3) B12 deficiency Code(s): E53.8 - DEFICIENCY OF OTHER SPECIFIED B GROUP VITAMINS Status: Acute (4) Decubitus ulcer, stage 2 Code(s): L89.92 - PRESSURE ULCER OF UNSPECIFIED SITE, STAGE 2 Status: Acute Qualifiers: Pressure injury location: sacral region Qualified Code(s): L89.152 - Pressure ulcer of sacral region, stage 2 Comment: Present on admission. (5) Dupuytren's contracture of right hand Code(s): M72.0 - PALMAR FASCIAL FIBROMATOSIS [DUPUYTREN] Status: Acute Comment: Etiology unclear (6) Folate deficiency Code(s): E53.8 - DEFICIENCY OF OTHER SPECIFIED B GROUP VITAMINS Status: Acute (7) Hypoglycemia Code(s): E16.2 - HYPOGLYCEMIA, UNSPECIFIED Status: Acute Comment: Resolved. (8) Multinodular goiter (nontoxic) Code(s): E04.2 - NONTOXIC MULTINODULAR GOITER Status: Acute Comment: Patient declined biopsy. (9) Pancytopenia Code(s): D61.818 - OTHER PANCYTOPENIA Status: Acute Comment: Await SPEP (10) Physical deconditioning Code(s): R53.81 - OTHER MALAISE Status: Acute Comment: PT/OT following. (11) Thrombocytopenia Code(s): D69.6 - THROMBOCYTOPENIA, UNSPECIFIED Status: Acute Comment: S/p platelet transfusion. Hemotology on the case (12) Weakness of right upper extremity Code(s): R29.898 - OT SYMPTOMS AND SIGNS INVOLVING THE MUSCULOSKELETAL SYSTEM Status: Acute Comment: Etiology unclear. ? prior CVA or subacute CVA. patient denied history of CVA. (13) CAD (coronary artery disease) Code(s): I25.10 - ATHSCL HEART DISEASE OF [place] CORONARY ARTERY W/O ANG PCTRS Status: Chronic Comment: stable (14) DM2 (diabetes mellitus, type 2) Status: Chronic Comment: reasonablly controlled (15) Paget disease of bone Code(s): M88.9 - OSTEITIS DEFORMANS OF UNSPECIFIED BONE Status: Suspected Comment: Given bone scan and CT reports - Plan cont current plan of care * medication reviewed as below * symptomatic treatment * pt is not interested in more diagnostic process to find problems * will transfuse 1 unit PRBC. Review of Systems - Review of Systems ENT: negative: Ear Pain, Ear Discharge, Nose Pain, Nose Discharge, Nose Congestion, Mouth Pain, Mouth Swelling, Throat Pain, Throat Swelling, Other Respiratory: negative: Cough, Dry, Shortness of Breath, Hemoptysis, SOB with Excertion, Pleuritic Pain, Sputum, Wheezing Cardiovascular: negative: chest pain, palpitations, orthopnea, paroxysmal nocturnal dyspnea, edema, light headedness, other Gastrointestinal: negative: Nausea, Vomiting, Abdominal Pain, Diarrhea, Constipation, Melena, Hematochezia, Other Genitourinary: negative: Dysuria, Frequency, Incontinence, Hematuria, Retention , Other Musculoskeletal: negative: Neck Pain, Shoulder Pain, Arm Pain, Back Pain, Hand Pain, Leg Pain, Foot Pain, Other Skin: negative: Rash, Lesions, Nathan, Bruising, Other - Medications/Allergies Allergies/Adverse Reactions: Allergies Allergy/AdvReac Type Severity Reaction Status Date / Time No Known Drug Allergies Allergy Verified 05/12/18 16:07 Medications: Current Medications Acetaminophen (Tylenol) 650 mg PO Q4H PRN PRN Reason: Headache/Fever/Mild Pain (1-3) Last Admin: 05/16/18 01:13 Dose: 650 mg Hydrocodone Bitart/Acetaminophen ([place] 5/325) 1 tab PO Q6H PRN PRN Reason: Pain 4-6 Last Admin: 05/18/18 22:23 Dose: 1 tab Amlodipine Besylate (Norvasc) 10 mg PO DAILY [facility] Last Admin: 05/24/18 08:48 Dose: 10 mg Atorvastatin Calcium (Lipitor) 20 mg PO HS [facility] Last Admin: 05/23/18 20:28 Dose: 20 mg Carvedilol (Coreg) 25 mg PO DAILY [facility] Last Admin: 05/24/18 08:48 Dose: 25 mg Cyanocobalamin (Vitamin B-12) 1,000 mcg PO DAILY [facility] Last Admin: 05/24/18 08:48 Dose: 1,000 mcg Dextrose/Water (Dextrose 50%) 25 gm SLOW IVP PRN PRN PRN Reason: Hypoglycemia Folic Acid (Folvite) 1 mg PO DAILY [facility] Last Admin: 05/24/18 08:48 Dose: 1 mg Glipizide (Glucotrol) 10 mg PO BID [facility] Last Admin: 05/24/18 08:48 Dose: 10 mg Glucagon (Glucagon) 1 mg IM PRN PRN PRN Reason: Hypoglycemia Hydralazine HCl (Apresoline) 10 mg SLOW IVP Q6H PRN PRN Reason: SBP Greater Than 170 Last Admin: 05/23/18 05:36 Dose: 10 mg Dextrose/Water (D5w) 1,000 mls @ 0 mls/hr IV .Q0M PRN PRN Reason: Hypoglycemia Insulin Human Lispro (Humalog) 0 units SC .MILD SLIDING SCALE PRN PRN Reason: Mild Correctional Scale Last Admin: 05/23/18 20:31 Dose: 4 unit Lisinopril (Zestril) 10 mg PO DAILY [facility] Last Admin: 05/24/18 08:47 Dose: 10 mg Magnesium Hydroxide (Milk Of Magnesium) 30 ml PO DAILY [facility] Last Admin: 05/24/18 08:48 Dose: 30 ml Melatonin (Melatonin) 3 mg PO HS PRN PRN Reason: Insomnia Last Admin: 05/23/18 23:46 Dose: 3 mg Nicotine (Nicoderm Patch) 14 mg TD Q24HR [facility] Last Admin: 05/23/18 17:28 Dose: 14 mg Polyethylene Glycol (Miralax) 17 gm PO DAILY [facility] Last Admin: 05/24/18 08:48 Dose: 17 gm Senna/Docusate Sodium (Senokot S) 2 tab PO BID PRN PRN Reason: Constipation Last Admin: 05/22/18 08:37 Dose: 2 tab Sodium Chloride (Flush - Normal Saline) 10 ml IVF PRN PRN PRN Reason: Saline Flush
[2018-05-24] MEDS: HumaLOG 300 UNITS/3 ML VIAL SC PRN ×2 (11:50→18:10)
[2018-05-24] MEDS ORDERED: Tamsulosin HCl 0.4 MG CAP PO SCH (18:00)
[2018-05-24] MEDS: Nicotine 14 MG PATCH TD SCH (18:06)
--- NOTE | 2018-05-24 19:31 | PRG ---
DATE OF SERVICE: 05/24/2018 SUBJECTIVE: The patient reports he had no bowel movements today, but he had several yesterday; however, on the nursing record, apparently had one today. OBJECTIVE: VITAL SIGNS: Temperature is 98.9, pulse 78, respiratory rate 16, blood pressure 149/71. CHEST: Clear. CARDIOVASCULAR: Regular rate and rhythm. ABDOMEN: Soft, nontender without organomegaly or masses. Bowel sounds are present, normoactive. LABORATORY DATA: White blood cell count of 5.0, hemoglobin 7, hematocrit 20.4, platelet count is 46,000. ASSESSMENT: 1. Stercoral proctitis. 2. Pancytopenia. 3. Vitamin B12 and folate deficiency. RECOMMENDATIONS: 1. Continue milk of magnesia daily. 2. We will sign off. Job ID: [id number]
[2018-05-24] MEDS: Atorvastatin Calcium 20 MG TAB PO SCH (21:05)
[2018-05-24] MEDS ORDERED: diphenhydrAMINE 25 MG CAP PO PRN (22:02)
[2018-05-25] MEDS: HumaLOG 300 UNITS/3 ML VIAL SC PRN ×2 (05:45→12:50)
[2018-05-25 08:03] LABS: #Eosinphils 0.3 thou/uL (0.0-0.7); #Lymphocytes 1.2 thou/uL (1.20-3.40); #Monocytes 0.8 thou/uL (0.11-0.59); #Neutrophils 5.9 thou/uL (1.40-6.50); %Basophils 0.1 % (0.0-1.0); %Eosinophils 3.5 % (0.0-10.0); %Lymphocytes 14.4 % (21.0-51.0); %Monocytes 9.8 % (0.0-10.0); %Neutrophils 72.2 % (42.0-75.0); Hemoglobin 8.7 g/dL (14.0-18.0); Mean Corpuscular HGB CONC 34.2 g/dL (32.0-36.0); Mean Corpuscular Hemoglobin 33.2 pg (27.0-31.0); Mean Platelet Volume 10.2 fL (7.4-10.4); Platelet Count 37 thou/uL (130-400); RBC Distribution Width 17.8 % (11.5-14.5); Red Blood Cell (RBC) Count 2.62 mill/uL (4.70-6.10); White Blood Cell (WBC) Count 8.1 thou/uL (4.8-10.8)
[2018-05-25 08:20] LABS: Total PSA 2.2 ng/mL (0.0-4.0)
[2018-05-25] MEDS: Amlodipine 10 MG TAB PO SCH (09:15)
[2018-05-25] MEDS: Lisinopril 10 MG TAB PO SCH (09:15)
[2018-05-25] MEDS: Folic Acid 1 MG TAB PO SCH (09:15)
[2018-05-25] MEDS: Carvedilol 25 MG TAB PO SCH (09:15)
[2018-05-25] MEDS: Cyanocobalamin (Vitamin B-12) 1,000 MCG TAB PO SCH (09:15)
[2018-05-25] MEDS: glipiZIDE 10 MG TAB PO SCH (09:15)
[2018-05-25] MEDS: Milk Of Magnesia 30 ML UDCUP PO SCH (09:16)
[2018-05-25] MEDS: Polyethylene Glycol 3350 17 GM Packet PO SCH (09:16)
--- NOTE | 2018-05-25 11:26 | DIS ---
DATE OF ADMISSION: 05/12/2018 DATE OF DISCHARGE: 05/25/2018 PRIMARY CARE PHYSICIAN: Dr. Marco Antonio Garcia. DISCHARGE DISPOSITION: [facility]. PRIMARY DISCHARGE DIAGNOSES: 1. Acute metabolic encephalopathy. 2. Acute kidney failure. 3. Folate deficiency. 4. Vitamin B12 deficiency. 5. Pancytopenia. 6. Suspected Paget disease of bone. 7. Multinodular goiter. 8. Chronic weakness of right upper extremity. 9. Dupuytren contracture of right hand. 10. Stage II decubitus ulcer present on admission. 11. Physical deconditioning. 12. Thrombocytopenia. 13. Hypoglycemia. 14. Stercoral proctitis. SECONDARY DISCHARGE DIAGNOSES: 1. Diabetes type 2. 2. Coronary artery disease. PRIMARY PROCEDURE/OPERATION: None. RADIOLOGICAL INVESTIGATION: Chest, abdomen, and pelvis CT scan showed thyroid enlargement lucency within left iliac bone. CT soft tissue neck showed thyroid goiter. Bone scan suspicious for Paget disease of bone. Thyroid ultrasound also showed multinodular goiter. CT brain negative for any acute intracranial process. SIGNIFICANT LABORATORY DATA: WBC 8.1, hemoglobin 8.7, and platelets are 37. INR 1.1. Sodium 141, potassium 4.6, BUN 34, creatinine 1.53, and calcium 8.9. LFT normal. Serum protein electrophoresis negative. Thyroid function test normal. B12 and folate low. PSA normal. Urinalysis unremarkable. Urine culture negative. DISCHARGE MEDICATIONS: 1. Amlodipine 10 mg daily. 2. Coreg 25 mg daily. 3. Plavix 75 mg p.o. daily. 4. Gabapentin 300 mg t.i.d. 5. Glipizide 10 mg b.i.d. 6. Prinzide 20/25 one tablet daily. 7. Metformin 1000 mg p.o. b.i.d. 8. Zocor 40 mg p.o. nightly. 9. Tramadol 50 mg t.i.d. p.r.n. 10. Vitamin B12 1000 mcg p.o. daily. 11. Folic acid 1 mg daily. 12. MiraLAX 17 g p.o. daily. 13. Flomax 0.4 mg p.o. daily. CONTRAINDICATION: None. CODE STATUS: Full code. INPATIENT PROFESSOR OF ENVIRONMENTAL STUDIES: Oncology group was following for pancytopenia and thrombocytopenia. Urology group was following for acute urinary retention. Theoretical Physicist was consulted for proctitis. TEST RESULT PENDING ON DISCHARGE: None. ALLERGIES: NO KNOWN DRUG ALLERGIES. DISCHARGE PLAN: Posthospital, the patient is discharged to [facility] home for more PT/OT and subsequently, he will follow up with primary care physician. HOSPITAL COURSE: A 68-year-old male with above-mentioned medical problem, who was admitted by Dr. Maldonado on May 12, 2018. Please see his H and P for further details. The patient was admitted for hypoglycemia. He was having weakness predominantly on the right upper extremity that was improved after correction of hypoglycemia. He also had acute kidney injury. He had pancytopenia on admission. The patient was also found with folic acid and B12 deficiency. He also had indeterminate troponin. During this hospital course, he was found with multinodular goiter and some lucency in the iliac bone. This patient completely refused to go for any kind of biopsy evaluation for further workup for pancytopenia, lucency of the bone, and thyroid enlargement. This patient had physical deconditioning while in hospital and that is why he was requiring placement and with help of outsole caser, we arranged rehabilitation. This patient has received 2 units of blood transfusion while in hospital and 3 units of platelet transfusion during this admission. At this point, diagnosis is not pinpoint and clear-cut at this point because patient refused to go for any more investigation and he is not interested in going for that as well. The patient was seen and examined at bedside today. REVIEW OF SYSTEMS: All review of systems reviewed with him and they are negative. PHYSICAL EXAMINATION: VITAL SIGNS: Currently, temperature 98.7, pulse 93, respiratory rate 18, saturation 98% on room air, and blood pressure 174/86. Weight 175 pounds. GENERAL: The patient is currently alert and awake. In no obvious acute distress. HEENT: Head; normocephalic and atraumatic. Eyes; pupils are round and reactive to light. Extraocular muscle intact. ENT; oropharynx within normal limits. Moist mucous membranes. No oral lesion. No pharyngeal erythema. No exudate. NECK: Supple. No JVD. No thyromegaly. No carotid bruit. LUNGS: Clear without any rhonchi or rales. CARDIAC: S1 and S2, regular. No murmur elicited. No gallop. No rub. ABDOMEN: Soft and benign. EXTREMITIES: No edema. NEUROLOGIC: Nonfocal examination. Paperwork for discharge done. Discharge medication reconciliation done. All review of systems reviewed with him and negative. Total time spent on discharge day, 31 minutes. Job ID: [id number]
--- NOTE | 2018-05-25 11:31 | PDOC.PN ---
- Subjective Encounter Start Date: 05/25/18 Encounter Start Time: 08:00 Patient seen and examined. No new complaints. No overnight events - Objective Resuscitation Status - Order Detail: 05/12/18 16:07 Resuscitation Status Routine Resuscitation Status: FULL: Full Resuscitation Discussed with: patient SHERRI Reviewed: Yes Vital Signs & Weight: Vital Signs (12 hours) Temp Pulse Resp BP BP Pulse Ox 05/25/18 09:20 98 05/25/18 09:15 93 174/86 H 05/25/18 08:00 98.7 F 93 18 174/86 H 98 05/25/18 04:00 99.4 F 05/25/18 00:00 98.9 F Weight Admit Weight 175 lb Weight 175 lb I&O: 05/24/18 05/25/18 05/26/18 06:59 06:59 06:59 Intake Total 1625 1790 Output Total 1250 810 Balance 375 980 Result Diagrams: 05/25/18 07:21 05/23/18 15:01 Additional Labs: Accuchecks 05/25/18 05/24/18 05/24/18 05:07 20:24 15:14 POC Glucose 178 H 205 H 151 H Phys Exam - Physical Examination Constitutional: NAD HEENT: PERRLA, moist MMs, sclera anicteric Neck: no JVD, supple Respiratory: no wheezing, no rales, no rhonchi Cardiovascular: RRR, no significant murmur, no rub Gastrointestinal: soft, non-tender, no distention, positive bowel sounds Musculoskeletal: no edema, pulses present Neurological: non-focal, normal sensation, moves all 4 limbs Lymphatic: no nodes Psychiatric: normal affect Skin: no rash, normal turgor Dx/Plan (1) SHIRLENE (acute kidney injury) Code(s): N17.9 - ACUTE KIDNEY FAILURE, UNSPECIFIED Status: Acute Comment: Improved with IVF to baseline (2) Acute metabolic encephalopathy due to hypoglycemia Code(s): G93.41 - METABOLIC ENCEPHALOPATHY; E16.2 - HYPOGLYCEMIA, UNSPECIFIED Status: Acute Comment: Resolved. (3) B12 deficiency Code(s): E53.8 - DEFICIENCY OF OTHER SPECIFIED B GROUP VITAMINS Status: Acute (4) Decubitus ulcer, stage 2 Code(s): L89.92 - PRESSURE ULCER OF UNSPECIFIED SITE, STAGE 2 Status: Acute Qualifiers: Pressure injury location: sacral region Qualified Code(s): L89.152 - Pressure ulcer of sacral region, stage 2 Comment: Present on admission. (5) Dupuytren's contracture of right hand Code(s): M72.0 - [place] FASCIAL FIBROMATOSIS [DUPUYTREN] Status: Acute Comment: Etiology unclear (6) Folate deficiency Code(s): E53.8 - DEFICIENCY OF OTHER SPECIFIED B GROUP VITAMINS Status: Acute (7) Hypoglycemia Code(s): E16.2 - HYPOGLYCEMIA, UNSPECIFIED Status: Acute Comment: Resolved. (8) Multinodular goiter (nontoxic) Code(s): E04.2 - NONTOXIC MULTINODULAR GOITER Status: Acute Comment: Patient declined biopsy. (9) Pancytopenia Code(s): D61.818 - OTHER PANCYTOPENIA Status: Acute Comment: Await SPEP (10) Physical deconditioning Code(s): R53.81 - OTHER MALAISE Status: Acute Comment: PT/OT following. (11) Thrombocytopenia Code(s): D69.6 - THROMBOCYTOPENIA, UNSPECIFIED Status: Acute Comment: S/p platelet transfusion. Hemotology on the case (12) Weakness of right upper extremity Code(s): R29.898 - [facility] SYMPTOMS AND SIGNS INVOLVING THE MUSCULOSKELETAL SYSTEM Status: Acute Comment: Etiology unclear. ? prior CVA or subacute CVA. patient denied history of CVA. (13) CAD (coronary artery disease) Code(s): I25.10 - ATHSCL HEART DISEASE OF [place] CORONARY ARTERY W/O ANG PCTRS Status: Chronic Comment: stable (14) DM2 (diabetes mellitus, type 2) Status: Chronic Comment: reasonablly controlled (15) Paget disease of bone Code(s): M88.9 - OSTEITIS DEFORMANS OF UNSPECIFIED BONE Status: Suspected Comment: Given bone scan and CT reports - Plan cont current plan of care, PT/OT, foster care social worker * medication reviewed as below * symptomatic treatment * see my discharge stevensony. Review of Systems - Review of Systems Respiratory: negative: Cough, Dry, Shortness of Breath, Hemoptysis, SOB with Excertion, Pleuritic Pain, Sputum, Wheezing Cardiovascular: negative: chest pain, palpitations, orthopnea, paroxysmal nocturnal dyspnea, edema, light headedness, other Gastrointestinal: negative: Nausea, Vomiting, Abdominal Pain, Diarrhea, Constipation, Melena, Hematochezia, Other Genitourinary: negative: Dysuria, Frequency, Incontinence, Hematuria, Retention , Other Musculoskeletal: negative: Neck Pain, Shoulder Pain, Arm Pain, Back Pain, Hand Pain, Leg Pain, Foot Pain, Other - Medications/Allergies Allergies/Adverse Reactions: Allergies Allergy/AdvReac Type Severity Reaction Status Date / Time No Known Drug Allergies Allergy Verified 05/12/18 16:07 Medications: Current Medications Acetaminophen (Tylenol) 650 mg PO Q4H PRN PRN Reason: Headache/Fever/Mild Pain (1-3) Last Admin: 05/16/18 01:13 Dose: 650 mg Hydrocodone Bitart/Acetaminophen ([place] 5/325) 1 tab PO Q6H PRN PRN Reason: Pain 4-6 Last Admin: 05/18/18 22:23 Dose: 1 tab Amlodipine Besylate (Norvasc) 10 mg PO DAILY [facility] Last Admin: 05/25/18 09:15 Dose: 10 mg Atorvastatin Calcium (Lipitor) 20 mg PO HS [facility] Last Admin: 05/24/18 21:05 Dose: 20 mg Carvedilol (Coreg) 25 mg PO DAILY [facility] Last Admin: 05/25/18 09:15 Dose: 25 mg Cyanocobalamin (Vitamin B-12) 1,000 mcg PO DAILY [facility] Last Admin: 05/25/18 09:15 Dose: 1,000 mcg Dextrose/Water (Dextrose 50%) 25 gm SLOW IVP PRN PRN PRN Reason: Hypoglycemia Diphenhydramine HCl (Benadryl) 25 mg PO HSPRN PRN PRN Reason: Insomnia Last Admin: 05/24/18 23:30 Dose: 25 mg Folic Acid (Folvite) 1 mg PO DAILY [facility] Last Admin: 05/25/18 09:15 Dose: 1 mg Glipizide (Glucotrol) 10 mg PO BID [facility] Last Admin: 05/25/18 09:15 Dose: 10 mg Glucagon (Glucagon) 1 mg IM PRN PRN PRN Reason: Hypoglycemia Hydralazine HCl (Apresoline) 10 mg SLOW IVP Q6H PRN PRN Reason: SBP Greater Than 170 Last Admin: 05/23/18 05:36 Dose: 10 mg Dextrose/Water (D5w) 1,000 mls @ 0 mls/hr IV .Q0M PRN PRN Reason: Hypoglycemia Insulin Human Lispro (Humalog) 0 units SC .MILD SLIDING SCALE PRN PRN Reason: Mild Correctional Scale Last Admin: 05/25/18 05:45 Dose: 2 unit Lisinopril (Zestril) 10 mg PO DAILY [facility] Last Admin: 05/25/18 09:15 Dose: 10 mg Magnesium Hydroxide (Milk Of Magnesium) 30 ml PO DAILY [facility] Last Admin: 05/25/18 09:16 Dose: 30 ml Melatonin (Melatonin) 3 mg PO HS PRN PRN Reason: Insomnia Last Admin: 05/23/18 23:46 Dose: 3 mg Nicotine (Nicoderm Patch) 14 mg TD Q24HR [facility] Last Admin: 05/24/18 18:06 Dose: 14 mg Polyethylene Glycol (Miralax) 17 gm PO DAILY [facility] Last Admin: 05/25/18 09:16 Dose: 17 gm Senna/Docusate Sodium (Senokot S) 2 tab PO BID PRN PRN Reason: Constipation Last Admin: 05/22/18 08:37 Dose: 2 tab Sodium Chloride (Flush - Normal Saline) 10 ml IVF PRN PRN PRN Reason: Saline Flush Tamsulosin HCl (Flomax) 0.4 mg PO 1800 [facility] Last Admin: 05/24/18 18:05 Dose: 0.4 mg
[2018-05-25 16:24] VITALS: BP 152/75; TEMP 99.3
== END 2018-05-25 16:52 | DRG 808 ==
LOC: ERS 13:55 → T4-A 16:48
PROVIDERS: ADMIT Internal Medicine Nephrology; ATTEND Internal Medicine
PROC: 30233R1 Transfusion of Nonautologous Platelets into Peripheral Vein, Percutaneous Approach (ICD-10-PCS; principal; 2018-05-13)
PROC: 30233N1 Transfusion of Nonautologous Red Blood Cells into Peripheral Vein, Percutaneous Approach (ICD-10-PCS; 2018-05-13)
DX: D61.818 Other pancytopenia (principal); G93.41 Metabolic encephalopathy; N17.9 Acute kidney failure, unspecified; M62.82 Rhabdomyolysis; E11.649 Type 2 diabetes mellitus with hypoglycemia without coma; D69.6 Thrombocytopenia, unspecified; E78.5 Hyperlipidemia, unspecified; I10 Essential (primary) hypertension; F17.210 Nicotine dependence, cigarettes, uncomplicated; K62.89 Other specified diseases of anus and rectum; E53.8 Deficiency of other specified B group vitamins; M88.9 Osteitis deformans of unspecified bone; E04.2 Nontoxic multinodular goiter; R22.1 Localized swelling, mass and lump, neck; R33.9 Retention of urine, unspecified; K59.09 Other constipation; L89.152 Pressure ulcer of sacral region, stage 2; E86.0 Dehydration; M72.0 Palmar fascial fibromatosis [Dupuytren]; R29.898 Other symptoms and signs involving the musculoskeletal system; Z53.29 Procedure and treatment not carried out because of patient's decision for other reasons; Z79.84 Long term (current) use of oral hypoglycemic drugs; Z79.02 Long term (current) use of antithrombotics/antiplatelets; Z79.899 Other long term (current) drug therapy
CPT/HCPCS: 36415; 36416; 36430; 51701; 70450; 70491; 71260; 74177; 76536; 78306; 80048; 80053; 81003; 81015; 82550; 82553; 82607; 82746; 83880; 84153; 84154; 84165; 84439; 84443; 84481; 84484; 85025; 85046; 85060; 85610; 85730; 86850; 86900; 86901; 87086; 93005; 96374; A9503; J0360; J3420; P9016; P9035; Q0163; Q9966

== ENCOUNTER 2018-06-01 11:58 | Emergency (ER) | payer MEDICARE ==
[2018-06-01 13:06] LABS: INR-International Normal Ratio 1.1; PTT 32.8 SEC (22.9-36.1); Prothrombin Time 14.7 SEC (12.0-14.7)
[2018-06-01 13:06] LABS: #Eosinphils 0.1 thou/uL (0.0-0.7); #Lymphocytes 1.1 thou/uL (1.20-3.40); #Monocytes 0.7 thou/uL (0.11-0.59); %Basophils 0.1 % (0.0-1.0); %Eosinophils 2.5 % (0.0-10.0); %Lymphocytes 18.2 % (21.0-51.0); %Neutrophils 68.1 % (42.0-75.0); Hemoglobin 7.3 g/dL (14.0-18.0); Mean Corpuscular HGB CONC 32.5 g/dL (32.0-36.0); Mean Corpuscular Hemoglobin 31.6 pg (27.0-31.0); Mean Corpuscular Volume 97.2 fL (78.0-98.0); Mean Platelet Volume 13.3 fL (7.4-10.4); Platelet Count 11 thou/uL (130-400); RBC Distribution Width 16.5 % (11.5-14.5); Red Blood Cell (RBC) Count 2.32 mill/uL (4.70-6.10); White Blood Cell (WBC) Count 6.1 thou/uL (4.8-10.8)
[2018-06-01 13:32] LABS: ALT (SGPT) 11 U/L (8-55); AST (SGOT) 10 U/L (5-34); Albumin 3.4 g/dL (3.4-4.8); Alkaline Phosphatase 106 U/L (40-150); Anion Gap 12 mmol/L (10-20); BUN (Urea Nitrogen) 87 mg/dL (8.4-25.7); Bilirubin, Total 0.3 mg/dL (0.2-1.2); Calc. Creatinine Clearance 0 mL/min (70-130); Carbon Dioxide 22 mmol/L (23-31); Chloride 110 mmol/L (98-107); Estimated GFR-MDRD 31; Globulin 3.6 g/dL (2.4-3.5); Glucose 245 mg/dL (80-115); Potassium 5.3 mmol/L (3.5-5.1); Sodium 139 mmol/L (136-145)
== END 2018-06-01 18:47 | disposition home or self-care (01) ==
LOC: ERS 11:58
DX: D64.9 Anemia, unspecified (principal); E11.9 Type 2 diabetes mellitus without complications; E78.5 Hyperlipidemia, unspecified; I10 Essential (primary) hypertension; F17.210 Nicotine dependence, cigarettes, uncomplicated; Z79.899 Other long term (current) drug therapy; Z79.84 Long term (current) use of oral hypoglycemic drugs
CPT/HCPCS: 36415; 80053; 84484; 85025; 85610; 85730; 86850; 86900; 86901; 93005